=== PATIENT | male | born 1985 | race Caucasian/White ===

== ENCOUNTER 2020-02-14 23:30 | Emergency (ER) | payer BC ==
--- NOTE | 2020-02-14 23:54 | ERPHSYRPT ---
- History of Present Illness Time Seen by Provider: 02/14/20 23:35 Source: patient Exam Limitations: no limitations Physician History: Location: right foot Quality: sharp Radiation: none Severity: moderate Duration: acute on chronic Timing: while walking today Modifying factors/associated signs and symptoms: home tylenol, no ice Timing/Duration: intermittent Allergies/Adverse Reactions: No Known Drug Allergies Allergy (Verified 02/14/20 23:42) Home Medications: Metformin HCl [Glucophage] 1 tab PO BID 02/14/20 [History] Metoprolol Succinate 50 mg [Toprol Xl 50 MG] 1 tab PO DAILY 02/14/20 [History] Simvastatin 20Mg [Zocor 20Mg] 1 tab PO DAILY 02/14/20 [History] Sitagliptin Phosphate 50 MG [Januvia 50 MG] 2 tab PO DAILY 02/14/20 [History] Triamterene/Hydrochlorothiazid [Triamterene-Hctz 37.5-25 mg Tb] 1 tab PO DAILY 02/14/20 [History] Hx Tetanus, Diphtheria Vaccination/Date Given: Yes Hx Influenza Vaccination/Date Given: No Hx Pneumococcal Vaccination/Date Given: No - Past Medical History Pertinent Past Medical History: Yes Neurological History: No Pertinent History ENT History: No Pertinent History Cardiac History: Hypertension Respiratory History: Asthma Endocrine Medical History: Diabetes Type II Musculoskeletal History: No Pertinent History GI Medical History: No Pertinent History History: No Pertinent History Psycho-Social History: No Pertinent History Other Medical History: JENUVIA, METFORMIN, LISINOPRIL, METOPROLOL, - Past Surgical History Past Surgical History: Yes Neuro Surgical History: No Pertinent History Cardiac: No Pertinent History Respiratory: No Pertinent History Gastrointestinal: Appendectomy Genitourinary: No Pertinent History Musculoskeletal: No Pertinent History Male Surgical History: No Pertinent History Other Surgical History: ARM SURG,KNEE SURG - Social History Smoking Status: Never smoker Exposure to second hand smoke: No Drug Use: none Patient Lives Alone: Yes - Review of Systems Constitutional: No Fever, No Chills Eyes: No Symptoms Ears, Nose, & Throat: No Symptoms Respiratory: No Cough, No Dyspnea Cardiac: No Chest Pain, No Edema, No Syncope Abdominal/Gastrointestinal: No Abdominal Pain, No Nausea, No Vomiting, No Diarrhea Genitourinary Symptoms: No Dysuria Musculoskeletal: Other (left foot pain), No Back Pain, No Neck Pain Skin: No Rash Neurological: No Dizziness, No Focal Weakness, No Sensory Changes Psychological: No Symptoms Endocrine: No Symptoms All Other Systems: Reviewed and Negative - Nursing Vital Signs Nursing Vital Signs: Initial Vital Signs Temperature 98.5 F 02/14/20 23:31 Pulse Rate 71 02/14/20 23:31 Respiratory Rate 16 02/14/20 23:31 Blood Pressure 125/71 02/14/20 23:31 O2 Sat by Pulse Oximetry 98 02/14/20 23:31 Pain Scale Pain Intensity 7 - Physical Exam General Appearance: no apparent distress, alert Eye Exam: PERRL/EOMI Ears, Nose, Throat Exam: pharynx normal, moist mucous membranes Neck Exam: normal inspection, supple Respiratory Exam: normal breath sounds, lungs clear Cardiovascular Exam: regular rate/rhythm, No edema Gastrointestinal/Abdomen Exam: soft, No tenderness Back Exam: normal inspection, No CVA tenderness Extremity Exam: normal inspection, normal range of motion, No pedal edema Neurologic Exam: alert, oriented x 3, cooperative, sensation nml, No motor deficits Skin Exam: normal color, warm, dry, No rash SpO2 Interpretation: normal Comments: No trismus, able to fully extend neck, normal range of motion of neck without pain. Uvula is midline, no swelling of the mouth, noraml oropharynx. No exudate, no signs of meningitis, no floor of mouth swelling, no hot potato voice on exam. No buccal swelling, no gum bleeding, no signs of tooth abscess/infection. No obvious deformity, sensation intact, 2+ capillary refill, 2 point tactile discrimination intact. 5 out of 5 strength. Full range of motion without pain. Compartments are soft, nontender. Overlying skin shows no tenting, bruising, ecchymosis. - Course Nursing assessment & vital signs reviewed: Yes - Progress Progress: improved Progress Note: 02/15/20 00:04 No trauma or deformity on exam. I do not feel an x-ray would be helpful tonight. We will give the patient cream to go home with. States he had previously used that. Plan of care was discussed with patient and all questions answered. The patient is agreeable to be discharged home and both verbal and printed discharge instructions were provided.The patient agreed to seek outpatient follow up as discussed. The patient was given strict instructions to return to the emergency department for worsening symptoms or any other emergent concerns. The patient verbalized understanding. Counseled pt/family regarding: diagnosis, need for follow-up - Departure Departure Disposition: Extended Care Facility Clinical Impression: Right foot pain Condition: Stable Critical Care Time: No Referrals: ALIA HERNANDEZ [Primary Care Provider] - Instructions: Foot Sprain (DC) Prescriptions: Capsaicin 45 gm TP BID PRN #10 cream..g.
[2020-02-14 23:56] VITALS: BP 125/71; O2SAT 98
[2020-02-15 00:26] VITALS: PULSE 88
== END 2020-02-15 00:10 | disposition home or self-care (01) ==
LOC: ED 23:30
DX: M79.671 Pain in right foot (principal)
CPT/HCPCS: 99283

== ENCOUNTER 2020-07-31 09:02 | Observation (INO) | payer BC ==
[2020-07-31] MEDS ORDERED: Sodium Chloride 0.9% 1000 ML 1,000 ML IV STA (09:20)
--- NOTE | 2020-07-31 09:23 | ERPHSYRPT ---
- History of Present Illness Time Seen by Provider: 07/31/20 09:20 Source: patient Exam Limitations: no limitations Patient Subjective Stated Complaint: Pt states "Dr. Hernandez office called me and said my potassium was 6.3 and I needed to get to the ER." Triage Nursing Assessment: Pt presented alert and oriented X 3, skin pwd Pt ambulates with an upright steady gait, able to speak in clear full sentences . PT in no apparent respiratory distress. Physician History: 35 years old male with history of diabetes mellitus, hypertension, hyperlipidemia is advised to report in the ER after his serum potassium was 6.3 on labs checked yesterday at Dr. Hernandez office. Patient denies any chest pain palpitations or shortness of breath. Denies any abdominal pain nausea or vomiting. No history of hyperkalemia in the past. He is very anxious. Allergies/Adverse Reactions: No Known Drug Allergies Allergy (Verified 02/14/20 23:42) Home Medications: Metformin HCl [Glucophage] 1 tab PO BID 02/14/20 [History] Metoprolol Succinate 50 mg [Toprol Xl 50 MG] 1 tab PO DAILY 02/14/20 [History] Simvastatin 20Mg [Zocor 20Mg] 1 tab PO DAILY 02/14/20 [History] Sitagliptin Phosphate 50 MG [Januvia 50 MG] 2 tab PO DAILY 02/14/20 [History] Triamterene/Hydrochlorothiazid [Triamterene-Hctz 37.5-25 mg Tb] 1 tab PO DAILY 02/14/20 [History] Glimepiride 2 mg [Amaryl 2 MG] 2 mg PO DAILY 07/31/20 [History] Hx Tetanus, Diphtheria Vaccination/Date Given: Yes Hx Influenza Vaccination/Date Given: No Hx Pneumococcal Vaccination/Date Given: No Immunizations Up to Date: Yes Travel Risk - International Travel Have you traveled outside of the country in past 3 weeks: No - Coronavirus Screening Are you exhibiting any of the following symptoms?: No Close contact with a COVID-19 positive Pt in past 14-21 Days: No - Vaccine Status Have you recieved a Covid-19 vaccination: No - Review of Systems Constitutional: No Symptoms Eyes: No Symptoms Ears, Nose, & Throat: No Symptoms Respiratory: No Symptoms Cardiac: No Symptoms Abdominal/Gastrointestinal: No Symptoms Genitourinary Symptoms: No Symptoms Musculoskeletal: No Symptoms Skin: No Symptoms Neurological: No Symptoms Psychological: No Symptoms Endocrine: No Symptoms Hematologic/Lymphatic: No Symptoms Immunological/Allergic: No Symptoms - Past Medical History Pertinent Past Medical History: Yes Neurological History: No Pertinent History ENT History: No Pertinent History Cardiac History: Hypertension Respiratory History: Asthma Endocrine Medical History: Diabetes Type II Musculoskeletal History: No Pertinent History GI Medical History: No Pertinent History History: No Pertinent History Psycho-Social History: No Pertinent History Other Medical History: JENUVIA, METFORMIN, LISINOPRIL, METOPROLOL, - Past Surgical History Past Surgical History: Yes Neuro Surgical History: No Pertinent History Cardiac: No Pertinent History Respiratory: No Pertinent History Gastrointestinal: Appendectomy Genitourinary: No Pertinent History Musculoskeletal: No Pertinent History Male Surgical History: No Pertinent History Other Surgical History: ARM SURG,KNEE SURG - Social History Smoking Status: Never smoker Exposure to second hand smoke: No Drug Use: none Patient Lives Alone: No - Nursing Vital Signs Nursing Vital Signs: Initial Vital Signs Temperature 99.3 F 07/31/20 09:05 Pulse Rate 79 07/31/20 09:05 Respiratory Rate 20 07/31/20 09:05 Blood Pressure 120/67 07/31/20 09:05 O2 Sat by Pulse Oximetry 96 07/31/20 09:05 Pain Scale Pain Intensity 0 - Physical Exam General Appearance: no apparent distress, anxiety Eye Exam: PERRL/EOMI, eyes nml inspection Ears, Nose, Throat Exam: normal ENT inspection, TMs normal, pharynx normal Neck Exam: normal inspection, non-tender, supple, full range of motion Respiratory Exam: normal breath sounds, lungs clear, No chest tenderness Cardiovascular Exam: regular rate/rhythm, normal heart sounds Gastrointestinal/Abdomen Exam: soft, normal bowel sounds, No tenderness Back Exam: normal inspection, normal range of motion Extremity Exam: normal inspection, normal range of motion Neurologic Exam: alert, oriented x 3, cooperative Skin Exam: normal color SpO2 Interpretation: normal SpO2: 96 O2 Delivery: Room Air - Course EKG Interpreted by Me: RATE (73), Sinus Rhythm, NORMAL AXIS, NORMAL INTERVALS, NORMAL QRS Ordered Tests: Active Orders 24 hr Category Date Time Status Contact Center Team Lead STAT Care 07/31/20 09:21 Active EKG-ER Only STAT Care 07/31/20 09:20 Active IV Insertion STAT Care 07/31/20 09:20 Active IV Insertion-2nd Peripheral STAT Care 07/31/20 09:20 Active CHEST 1 VIEW (PORTABLE) Stat Exams 07/31/20 09:21 Completed CBC W DIFF Stat Lab 07/31/20 09:29 Completed CMP Stat Lab 07/31/20 09:29 Completed Lactic Acid Urgent Lab 07/31/20 09:30 Completed MAGNESIUM Stat Lab 07/31/20 09:29 Completed TROPONIN Q3H Lab 07/31/20 09:29 Completed TROPONIN Q3H Lab 07/31/20 12:30 Ordered TROPONIN Q3H Lab 07/31/20 15:30 Ordered TROPONIN Q3H Lab 07/31/20 18:30 Ordered TROPONIN Q3H Lab 07/31/20 21:30 Ordered UA W/RFX UR CULTURE Stat Lab 07/31/20 09:50 Ordered Medication Summary Generic Name Dose Route Start Last Admin Trade Name Freq PRN Reason Stop Dose Admin Sodium Chloride 1,000 mls @ 999 mls/hr 07/31/20 09:20 07/31/20 09:27 Sodium Chloride 0.9% 1000 Ml IV 07/31/20 10:20 999 mls/hr .Q1H1M STA Administration Discontinued Medications Generic Name Dose Route Start Last Admin Trade Name Freq PRN Reason Stop Dose Admin Calcium Gluconate 1,000 mg 07/31/20 09:55 Calcium Gluconate 10% 1000 Mg IV 07/31/20 09:56 STAT ONE Calcium Gluconate Confirm 07/31/20 10:02 Calcium Gluconate 10% 1000 Mg Administered 07/31/20 10:03 Dose 1,000 mg IV .STK-MED ONE Dextrose 50 ml 07/31/20 09:55 D50w 50 Ml Abboject IV 07/31/20 09:56 STAT ONE Dextrose Confirm 07/31/20 10:04 D50w 50 Ml Abboject Administered 07/31/20 10:05 Dose 50 ml IV .STK-MED ONE Sodium Chloride Confirm 07/31/20 09:26 Sodium Chloride 0.9% 1000 Ml Administered 07/31/20 09:27 Dose 1,000 mls @ ud .ROUTE .STK-MED ONE Insulin Human Regular 10 unit 07/31/20 09:55 Humulin R IV 07/31/20 09:56 STAT ONE Insulin Human Regular Confirm 07/31/20 10:04 Humulin R Administered 07/31/20 10:05 Dose 10 unit .ROUTE .STK-MED ONE Sodium Bicarbonate 50 meq 07/31/20 09:55 Sodium Bicarbonate 50 Meq/50 Ml Abboject IV 07/31/20 09:56 STAT ONE Sodium Bicarbonate Confirm 07/31/20 10:04 Sodium Bicarbonate 50 Meq/50 Ml Abboject Administered 07/31/20 10:05 Dose 50 meq IV .STK-MED ONE Sodium Polystyrene Sulfonate 30 g 07/31/20 09:55 07/31/20 10:03 Kayexylate 15 Gm/60 Ml PO 07/31/20 09:56 30 g STAT ONE Administration Sodium Polystyrene Sulfonate Confirm 07/31/20 10:01 Kayexylate 15 Gm/60 Ml Administered 07/31/20 10:02 Dose 30 g .ROUTE .STK-MED ONE Lab/Rad Data: Laboratory Result Diagrams 07/31/20 09:29 07/31/20 09:29 Laboratory Results 07/31/20 07/31/20 07/31/20 Range/Units 09:30 09:29 09:29 WBC (4.0-10.5) K/mm3 RBC (4.1-5.6) M/mm3 Hgb (12.5-18.0) gm/dl Hct (42-50) % MCV (78-100) fl MCH (26-32) pg MCHC (32-36) g/dl RDW (11.5-14.0) % Plt Count (150-450) K/mm3 MPV (7.5-11.0) fl Gran % (36.0-66.0) % Eos # (Auto) (0-0.5) Absolute Lymphs (auto) (1.0-4.6) Absolute Monos (auto) (0.0-1.3) Lymphocytes % (24.0-44.0) % Monocytes % (0.0-12.0) % Eosinophils % (0.00-5.0) % Basophils % (0.0-0.4) % Absolute Granulocytes (1.4-6.9) Basophils # (0-0.4) Sodium 139 (137-145) mmol/L Potassium 6.5 H* (3.5-5.1) mmol/L Chloride 104 (98-107) mmol/L Carbon Dioxide 25 (22-30) mmol/L Anion Gap 16.0 H (5-15) MEQ/L BUN 20 (9-20) mg/dL Creatinine 1.65 H (0.66-1.25) mg/dL Estimated GFR 50.7 ML/MIN Glucose 150 H (74-106) mg/dL Lactic Acid 1.2 (0.4-2.0) Calcium 9.6 (8.4-10.2) mg/dL Magnesium 2.0 (1.6-2.3) mg/dL Total Bilirubin 0.50 (0.2-1.3) mg/dL AST 28 (17-59) U/L ALT 37 (0-50) U/L Alkaline Phosphatase 84 (38-126) U/L Troponin I < 0.012 (0.000-0.034) ng/mL Serum Total Protein 7.4 (6.3-8.2) g/dL Albumin 4.5 (3.5-5.0) g/dL 07/31/20 Range/Units 09:29 WBC 8.7 (4.0-10.5) K/mm3 RBC 5.68 H (4.1-5.6) M/mm3 Hgb 14.9 (12.5-18.0) gm/dl Hct 49.0 (42-50) % MCV 86.3 (78-100) fl MCH 26.2 (26-32) pg MCHC 30.4 L (32-36) g/dl RDW 16.7 H (11.5-14.0) % Plt Count 278 (150-450) K/mm3 MPV 10.4 (7.5-11.0) fl Gran % 62.9 (36.0-66.0) % Eos # (Auto) 0.39 (0-0.5) Absolute Lymphs (auto) 2.02 (1.0-4.6) Absolute Monos (auto) 0.72 (0.0-1.3) Lymphocytes % 23.3 L (24.0-44.0) % Monocytes % 8.3 (0.0-12.0) % Eosinophils % 4.5 (0.00-5.0) % Basophils % 1.0 (0.0-0.4) % Absolute Granulocytes 5.45 (1.4-6.9) Basophils # 0.09 (0-0.4) Sodium (137-145) mmol/L Potassium (3.5-5.1) mmol/L Chloride (98-107) mmol/L Carbon Dioxide (22-30) mmol/L Anion Gap (5-15) MEQ/L BUN (9-20) mg/dL Creatinine (0.66-1.25) mg/dL Estimated GFR ML/MIN Glucose (74-106) mg/dL Lactic Acid (0.4-2.0) Calcium (8.4-10.2) mg/dL Magnesium (1.6-2.3) mg/dL Total Bilirubin (0.2-1.3) mg/dL AST (17-59) U/L ALT (0-50) U/L Alkaline Phosphatase (38-126) U/L Troponin I (0.000-0.034) ng/mL Serum Total Protein (6.3-8.2) g/dL Albumin (3.5-5.0) g/dL - Progress Progress Note: 07/31/20 10:01 35 years old is evaluated for hyperkalemia found at the lab work done yesterday afternoon at Dr. Hernandez's office. EKG showed normal sinus rhythm with some mild peaked T waves in lateral leads. No ST elevation. Repeat labs showed potassium of 6.5. We would give him calcium gluconate, bicarb, dextrose, insulin and Kayexalate along with fluid bolus. Patient would be admitted. Discussed with : Blaise Will see patient in: hospital (observation) Counseled pt/family regarding: lab results, diagnosis, rad results - Departure Departure Disposition: Observation Clinical Impression: Hyperkalemia, SAADIA (acute kidney injury) Condition: Stable Critical Care Time: Yes Critical Care Time(excluding separately billable procedures): Critical 30-74 mins Referrals: ALIA HERNANDEZ [Primary Care Provider] -
[2020-07-31] MEDS ORDERED: Sodium Chloride 0.9% 1000 ML 1,000 ML ONE (09:26)
[2020-07-31 09:37] LABS: Absolute Neutrophil Ct (ANC) 5.45 (1.4-6.9); Basophil (Absolute #) 0.09 (0-0.4); Eosinophil % 4.5 % (0.00-5.0); Eosinophil (Absolute #) 0.39 (0-0.5); Hemoglobin 14.9 gm/dl (12.5-18.0); Lymphocyte (Absolute #) 2.02 (1.0-4.6); Lymphocytes % 23.3 % (24.0-44.0); Mean Cell Volume 86.3 fl (78-100); Mean Corpuscular Hemoglobin 26.2 pg (26-32); Mean Corpuscular Hgb Concent. 30.4 g/dl (32-36); Mean Platelet Volume 10.4 fl (7.5-11.0); Monocyte (Absolute #) 0.72 (0.0-1.3); Monocytes % 8.3 % (0.0-12.0); Neutrophil % 62.9 % (36.0-66.0); Platelet Count 278 K/mm3 (150-450); Red Blood Count 5.68 M/mm3 (4.1-5.6); Red Cell Distribution Width 16.7 % (11.5-14.0); White Blood Count 8.7 K/mm3 (4.0-10.5)
[2020-07-31 09:49] LABS: ALBUMIN 4.5 g/dL (3.5-5.0); BILIRUBIN,TOTAL 0.5 mg/dL (0.2-1.3); Calcium 9.6 mg/dL (8.4-10.2); Creatinine 1 1.65 mg/dL (0.66-1.25); EST GLOMERULAR FILTRATION RATE 50.7 ML/MIN; Total Protein 7.4 g/dL (6.3-8.2)
[2020-07-31 09:52] LABS: Potassium 6.5 mmol/L (3.5-5.1)
--- NOTE | 2020-07-31 09:53 | XRAY ---
Indication: High potassium. Comparison: November 27, 2017. Portable chest remains clear again with incidental mild right hemidiaphragm elevation. Heart and mediastinal structures within normal limits. Bony thorax intact. Impression: Continued nonacute chest.
[2020-07-31] MEDS ORDERED: HUMULIN R IV ONE (09:55)
[2020-07-31] MEDS ORDERED: SODIUM BICARBONATE 50 MEQ/50 ML ABBOJECT IV ONE ×2 (09:55→10:04)
[2020-07-31] MEDS ORDERED: Calcium Gluconate 10% 1000 MG IV ONE ×2 (09:55→10:02)
[2020-07-31] MEDS ORDERED: Kayexylate 15 GM/60 ML PO ONE ×2 (09:55→17:50)
[2020-07-31] MEDS ORDERED: D50W 50 ml Abboject IV ONE ×2 (09:55→10:04)
[2020-07-31] MEDS ORDERED: Kayexylate 15 GM/60 ML ONE (10:01)
[2020-07-31] MEDS ORDERED: HUMULIN R ONE (10:04)
[2020-07-31] MEDS ORDERED: Lasix 20 MG/2 ML IV STA (10:06)
[2020-07-31 10:53] LABS: Appearance CLEAR (CLEAR); Bilirubin NEGATIVE (NEGATIVE); Blood NEGATIVE Ery/ul (0-5); Glucose NEGATIVE (NEGATIVE); Ketones NEGATIVE (NEGATIVE); Leukocyte Esterase NEGATIVE (NEGATIVE); Mucus SLIGHT /HPF (NEGATIVE); Nitrite NEGATIVE (NEGATIVE); Protein,Urine Dip NEGATIVE (Negative); Specific Gravity 1.017 (1.005-1.025); Urobilinogen NEGATIVE mg/dL (0-1)
[2020-07-31 11:22] LABS: INFLUENZA A NEGATIVE (NEGATIVE); INFLUENZA B NEGATIVE (NEGATIVE); RESPIRATORY SYNCTIAL VIRUS NEGATIVE (Negative)
[2020-07-31] MEDS ORDERED: Lasix 40 MG/4 ML ONE (11:40)
[2020-07-31] MEDS ORDERED: HUMALOG SQ PRN (12:11)
[2020-07-31] MEDS ORDERED: DUONEB 0.5-3 MG/3 ml Neb IH PRN (12:11)
[2020-07-31] MEDS ORDERED: TYLENOL 325 MG PO PRN (12:11)
[2020-07-31] MEDS: Pepcid 20 MG VIAL IV SCH ×2 (13:53→22:28)
[2020-07-31] MEDS: Sodium Chloride 0.9% 1000 ML 1,000 ML IV SCH ×2 (13:53→22:28)
[2020-07-31] MEDS ORDERED: VENTOLIN COMMON CANISTER IH PRN (13:54)
[2020-07-31] MEDS: Glucophage 500 MG PO SCH (17:41)
[2020-07-31] MEDS ORDERED: NON-FORMULARY ITEM (Metformin Hcl [Glucophage] 1,000 MG) PO SCH (22:00)
[2020-07-31] MEDS ORDERED: ZOCOR 20MG ONE (22:24)
[2020-08-01 06:08] LABS: Absolute Neutrophil Ct (ANC) 6.52 (1.4-6.9); BASOPHIL % 0.8 % (0.0-0.4); Basophil (Absolute #) 0.07 (0-0.4); Eosinophil (Absolute #) 0.44 (0-0.5); Hematocrit 44.2 % (42-50); Hemoglobin 13.2 gm/dl (12.5-18.0); Lymphocytes % 11.4 % (24.0-44.0); Mean Cell Volume 87.2 fl (78-100); Mean Corpuscular Hgb Concent. 29.9 g/dl (32-36); Mean Platelet Volume 10.1 fl (7.5-11.0); Monocyte (Absolute #) 0.73 (0.0-1.3); Monocytes % 8.3 % (0.0-12.0); Neutrophil % 74.5 % (36.0-66.0); Platelet Count 213 K/mm3 (150-450); Red Blood Count 5.07 M/mm3 (4.1-5.6); Red Cell Distribution Width 16.9 % (11.5-14.0); White Blood Count 8.8 K/mm3 (4.0-10.5)
[2020-08-01] MEDS: Sodium Chloride 0.9% 1000 ML 1,000 ML IV SCH (06:14)
[2020-08-01 06:23] LABS: ALBUMIN 3.7 g/dL (3.5-5.0); ALKALINE PHOSPHATASE 72 U/L (38-126); ANION GAP 11.8 MEQ/L (5-15); BLOOD UREA NITROGEN 18 mg/dL (9-20); CHLORIDE 105 mmol/L (98-107); Calcium 8.6 mg/dL (8.4-10.2); Carbon Dioxide 24 mmol/L (22-30); Creatinine 1 1.39 mg/dL (0.66-1.25); EST GLOMERULAR FILTRATION RATE > 60.0 ML/MIN; Glucose 144 mg/dL (74-106); Potassium 4.7 mmol/L (3.5-5.1); SGOT/AST 28 U/L (17-59); SGPT/ALT 37 U/L (0-50); SODIUM 136 mmol/L (137-145); Total Protein 6.5 g/dL (6.3-8.2)
[2020-08-01] MEDS: Glucophage 500 MG PO SCH (08:27)
[2020-08-01] MEDS: Pepcid 20 MG VIAL IV SCH (09:59)
[2020-08-01] MEDS ORDERED: Januvia 50 MG PO SCH (10:00)
[2020-08-01] MEDS ORDERED: CLARITIN 10 MG PO SCH (10:00)
[2020-08-01] MEDS ORDERED: Glucotrol 5 MG PO SCH (10:00)
[2020-08-01] MEDS ORDERED: NON-FORMULARY ITEM (Cetirizine Hcl [Allergy Relief] 10 MG) PO SCH (10:00)
[2020-08-01] MEDS ORDERED: Toprol Xl 50 MG PO SCH (10:00)
--- NOTE | 2020-08-01 11:10 | PCM.SSS ---
History of Present Illness - Chief Complaint Chief Complaint: Hyperkalemia History of Present Illness: Mr.ROBERTSON BAIG is a 35 year old male who was admitted after routine bloodwork revealed a K of 6.5, he has had no symptoms. he denies any change in diet or fluid intake, no new meds, no recent vigorous exercise, he works in the [employer] and has no extreme heat exposure etc. - Review of Systems Constitutional: No Fever, No Chills Respiratory: No Cough, No Short Of Breath Cardiac: No Chest Pain, No Edema, No Syncope Abdominal/Gastrointestinal: No Abdominal Pain, No Nausea, No Vomiting, No Diarrhea Genitourinary Symptoms: No Dysuria Skin: No Rash All Other Systems: Reviewed and Negative Medications & Allergies Home Medications: Home Medication List Metformin HCl [Glucophage] 1,000 mg PO BID 02/14/20 [History Confirmed 07/31/20] Metoprolol Succinate 50 mg [Toprol Xl 50 MG] 1 tab PO DAILY 02/14/20 [History Confirmed 07/31/20] Simvastatin 20Mg [Zocor 20Mg] 1 tab PO DAILY 02/14/20 [History Confirmed 07/31/20] Albuterol Sulfate [Albuterol Sulfate Hfa] 8.5 gm IH Q4H PRN PRN 07/31/20 [History Confirmed 07/31/20] Cetirizine HCl [Allergy Relief] 10 mg PO DAILY 07/31/20 [History Confirmed 07/31/20] Glipizide 2 mg PO DAILY 07/31/20 [History Confirmed 07/31/20] Lisinopril 20 mg [Zestril 20 MG] 40 mg PO DAILY 07/31/20 [History Confirmed 07/31/20] Sitagliptin Phosphate 50 MG [Januvia 50 MG] 100 mg PO DAILY 07/31/20 [History Confirmed 07/31/20] Hydrochlorothiazide 25 mg [hydroDIURIL 25 MG] 25 mg PO DAILY #30 tablet 08/01/20 [Rx] Allergies/Adverse Reactions: Allergies Allergy/AdvReac Type Severity Reaction Status Date / Time No Known Drug Allergies Allergy Verified 02/14/20 23:42 - Past Medical History Past Medical History: Yes Neurological History: No Pertinent History ENT History: No Pertinent History Cardiac History: Hypertension Respiratory History: Asthma Endocrine Medical History: Diabetes Type II Musculoskelatal History: No Pertinent History GI Medical History: No Pertinent History History: No Pertinent History Pyscho-Social History: No Pertinent History Comment: JENUVIA, METFORMIN, LISINOPRIL, METOPROLOL, - Past Surgical History Past Surgical History: Yes Neuro Surgical History: No Pertinent History Cardiac History: No Pertinent History Respiratory Surgery: No Pertinent History GI Surgical History: Appendectomy Genitourinary Surgical Hx: No Pertinent History Musculskeletal Surgical Hx: No Pertinent History Male Surgical History: No Pertinent History Other Surgical History: ARM SURG,KNEE SURG - Social History Smoking Status: Never smoker Exposure to second hand smoke: No Alcohol: Occasionally Drug Use: none - Physical Exam Vital Signs: Vital Signs - 24 hr Temp Pulse Resp BP Pulse Ox 08/01/20 08:00 96.6 F 73 18 129/61 93 L 08/01/20 04:19 99.2 F 99 H 20 119/57 93 L 08/01/20 04:00 20 08/01/20 00:04 97.7 F 82 20 128/77 96 08/01/20 00:00 20 07/31/20 20:36 78 17 92 L 07/31/20 20:00 18 07/31/20 18:52 97.3 F 71 18 107/59 95 07/31/20 16:00 98.3 F 82 22 121/68 96 07/31/20 14:00 73 18 95 07/31/20 12:29 99.3 F 72 16 98/67 98 General Appearance: no apparent distress, obese Neurologic Exam: alert, oriented x 3, cooperative Respiratory Exam: normal breath sounds, lungs clear, No respiratory distress Cardiovascular Exam: regular rate/rhythm, normal heart sounds, normal peripheral pulses Gastrointestinal/Abdomen Exam: soft, normal bowel sounds, No tenderness, No mass Extremity Exam: normal inspection, normal range of motion, pelvis stable Results - Labs Lab/Micro Results: Lab Results-Last 24 Hours 07/31/20 07/31/20 07/31/20 Range/Units 10:27 12:25 14:20 WBC (4.0-10.5) K/mm3 RBC (4.1-5.6) M/mm3 Hgb (12.5-18.0) gm/dl Hct (42-50) % MCV (78-100) fl MCH (26-32) pg MCHC (32-36) g/dl RDW (11.5-14.0) % Plt Count (150-450) K/mm3 MPV (7.5-11.0) fl Gran % (36.0-66.0) % Eos # (Auto) (0-0.5) Absolute Lymphs (auto) (1.0-4.6) Absolute Monos (auto) (0.0-1.3) Lymphocytes % (24.0-44.0) % Monocytes % (0.0-12.0) % Eosinophils % (0.00-5.0) % Basophils % (0.0-0.4) % Absolute Granulocytes (1.4-6.9) Basophils # (0-0.4) Sodium (137-145) mmol/L Potassium 5.2 H (3.5-5.1) mmol/L Chloride (98-107) mmol/L Carbon Dioxide (22-30) mmol/L Anion Gap (5-15) MEQ/L BUN (9-20) mg/dL Creatinine (0.66-1.25) mg/dL Estimated GFR ML/MIN Glucose (74-106) mg/dL POC Glucometer (74 to 106) mg/dL Calcium (8.4-10.2) mg/dL Total Bilirubin (0.2-1.3) mg/dL AST (17-59) U/L ALT (0-50) U/L Alkaline Phosphatase (38-126) U/L Troponin I < 0.012 (0.000-0.034) ng/mL Serum Total Protein (6.3-8.2) g/dL Albumin (3.5-5.0) g/dL Influenza Type A Ag NEGATIVE (NEGATIVE) Influenza Type B Ag NEGATIVE (NEGATIVE) RSV (PCR) NEGATIVE (Negative) SARS-CoV-2 (PCR) NEGATIVE (NEGATIVE) 07/31/20 07/31/20 07/31/20 Range/Units 15:32 16:14 18:30 WBC (4.0-10.5) K/mm3 RBC (4.1-5.6) M/mm3 Hgb (12.5-18.0) gm/dl Hct (42-50) % MCV (78-100) fl MCH (26-32) pg MCHC (32-36) g/dl RDW (11.5-14.0) % Plt Count (150-450) K/mm3 MPV (7.5-11.0) fl Gran % (36.0-66.0) % Eos # (Auto) (0-0.5) Absolute Lymphs (auto) (1.0-4.6) Absolute Monos (auto) (0.0-1.3) Lymphocytes % (24.0-44.0) % Monocytes % (0.0-12.0) % Eosinophils % (0.00-5.0) % Basophils % (0.0-0.4) % Absolute Granulocytes (1.4-6.9) Basophils # (0-0.4) Sodium (137-145) mmol/L Potassium (3.5-5.1) mmol/L Chloride (98-107) mmol/L Carbon Dioxide (22-30) mmol/L Anion Gap (5-15) MEQ/L BUN (9-20) mg/dL Creatinine (0.66-1.25) mg/dL Estimated GFR ML/MIN Glucose (74-106) mg/dL POC Glucometer 142 H (74 to 106) mg/dL Calcium (8.4-10.2) mg/dL Total Bilirubin (0.2-1.3) mg/dL AST (17-59) U/L ALT (0-50) U/L Alkaline Phosphatase (38-126) U/L Troponin I < 0.012 < 0.012 (0.000-0.034) ng/mL Serum Total Protein (6.3-8.2) g/dL Albumin (3.5-5.0) g/dL Influenza Type A Ag (NEGATIVE) Influenza Type B Ag (NEGATIVE) RSV (PCR) (Negative) SARS-CoV-2 (PCR) (NEGATIVE) 07/31/20 07/31/20 08/01/20 Range/Units 21:25 21:31 05:45 WBC 8.8 (4.0-10.5) K/mm3 RBC 5.07 (4.1-5.6) M/mm3 Hgb 13.2 (12.5-18.0) gm/dl Hct 44.2 (42-50) % MCV 87.2 (78-100) fl MCH 26.0 (26-32) pg MCHC 29.9 L (32-36) g/dl RDW 16.9 H (11.5-14.0) % Plt Count 213 (150-450) K/mm3 MPV 10.1 (7.5-11.0) fl Gran % 74.5 H (36.0-66.0) % Eos # (Auto) 0.44 (0-0.5) Absolute Lymphs (auto) 1.00 (1.0-4.6) Absolute Monos (auto) 0.73 (0.0-1.3) Lymphocytes % 11.4 L (24.0-44.0) % Monocytes % 8.3 (0.0-12.0) % Eosinophils % 5.0 (0.00-5.0) % Basophils % 0.8 (0.0-0.4) % Absolute Granulocytes 6.52 (1.4-6.9) Basophils # 0.07 (0-0.4) Sodium (137-145) mmol/L Potassium (3.5-5.1) mmol/L Chloride (98-107) mmol/L Carbon Dioxide (22-30) mmol/L Anion Gap (5-15) MEQ/L BUN (9-20) mg/dL Creatinine (0.66-1.25) mg/dL Estimated GFR ML/MIN Glucose (74-106) mg/dL POC Glucometer 185 H (74 to 106) mg/dL Calcium (8.4-10.2) mg/dL Total Bilirubin (0.2-1.3) mg/dL AST (17-59) U/L ALT (0-50) U/L Alkaline Phosphatase (38-126) U/L Troponin I < 0.012 (0.000-0.034) ng/mL Serum Total Protein (6.3-8.2) g/dL Albumin (3.5-5.0) g/dL Influenza Type A Ag (NEGATIVE) Influenza Type B Ag (NEGATIVE) RSV (PCR) (Negative) SARS-CoV-2 (PCR) (NEGATIVE) 08/01/20 08/01/20 Range/Units 05:45 06:51 WBC (4.0-10.5) K/mm3 RBC (4.1-5.6) M/mm3 Hgb (12.5-18.0) gm/dl Hct (42-50) % MCV (78-100) fl MCH (26-32) pg MCHC (32-36) g/dl RDW (11.5-14.0) % Plt Count (150-450) K/mm3 MPV (7.5-11.0) fl Gran % (36.0-66.0) % Eos # (Auto) (0-0.5) Absolute Lymphs (auto) (1.0-4.6) Absolute Monos (auto) (0.0-1.3) Lymphocytes % (24.0-44.0) % Monocytes % (0.0-12.0) % Eosinophils % (0.00-5.0) % Basophils % (0.0-0.4) % Absolute Granulocytes (1.4-6.9) Basophils # (0-0.4) Sodium 136 L (137-145) mmol/L Potassium 4.7 (3.5-5.1) mmol/L Chloride 105 (98-107) mmol/L Carbon Dioxide 24 (22-30) mmol/L Anion Gap 11.8 (5-15) MEQ/L BUN 18 (9-20) mg/dL Creatinine 1.39 H (0.66-1.25) mg/dL Estimated GFR > 60.0 ML/MIN Glucose 144 H (74-106) mg/dL POC Glucometer 125 H (74 to 106) mg/dL Calcium 8.6 (8.4-10.2) mg/dL Total Bilirubin 0.80 (0.2-1.3) mg/dL AST 28 (17-59) U/L ALT 37 (0-50) U/L Alkaline Phosphatase 72 (38-126) U/L Troponin I (0.000-0.034) ng/mL Serum Total Protein 6.5 (6.3-8.2) g/dL Albumin 3.7 (3.5-5.0) g/dL Influenza Type A Ag (NEGATIVE) Influenza Type B Ag (NEGATIVE) RSV (PCR) (Negative) SARS-CoV-2 (PCR) (NEGATIVE) Accuchecks Date 08/01/20 - Radiology Impressions Radiology Exams & Impressions: Radiology Procedures Category Date Time Status CHEST 1 VIEW (PORTABLE) Stat Exams 07/31/20 09:21 Completed - Other Procedures and Tests Respiratory Therapy 07/31/20 14:00 Respiratory Therapy Assessment DAILY Assessment/Plan (1) Hyperkalemia Current Visit: Yes Status: Acute Assessment & Plan: resolved with treatment, Dr Hernandez his primary d/c triamterene, elevated bun/cr likely secondary to diuretic use, will continue to hold triamterene, continue hctz and check labs with followup next week Code(s): E87.5 - HYPERKALEMIA (2) SAADIA (acute kidney injury) Current Visit: Yes Status: Acute Code(s): N17.9 - ACUTE KIDNEY FAILURE, UNSPECIFIED Hospital Summary - Vitals & Intake/Output Vital Signs: Vital Signs Temperature 96.6 F 08/01/20 08:00 Pulse Rate 73 08/01/20 08:00 Respiratory Rate 18 08/01/20 08:00 Blood Pressure 129/61 08/01/20 08:00 O2 Sat by Pulse Oximetry 93 L 08/01/20 08:00 Intake & Output: Intake & Output 07/29/20 07/30/20 07/31/20 08/01/20 11:59 11:59 11:59 11:59 Intake Total 2876 Balance 2876 Weight 176.8 kg 176.9 kg - Lab Result Diagrams: 08/01/20 05:45 08/01/20 05:45 Lab Results-Last 24 Hrs: Lab Results-Last 24 Hours 07/31/20 07/31/20 07/31/20 Range/Units 10:27 12:25 14:20 WBC (4.0-10.5) K/mm3 RBC (4.1-5.6) M/mm3 Hgb (12.5-18.0) gm/dl Hct (42-50) % MCV (78-100) fl MCH (26-32) pg MCHC (32-36) g/dl RDW (11.5-14.0) % Plt Count (150-450) K/mm3 MPV (7.5-11.0) fl Gran % (36.0-66.0) % Eos # (Auto) (0-0.5) Absolute Lymphs (auto) (1.0-4.6) Absolute Monos (auto) (0.0-1.3) Lymphocytes % (24.0-44.0) % Monocytes % (0.0-12.0) % Eosinophils % (0.00-5.0) % Basophils % (0.0-0.4) % Absolute Granulocytes (1.4-6.9) Basophils # (0-0.4) Sodium (137-145) mmol/L Potassium 5.2 H (3.5-5.1) mmol/L Chloride (98-107) mmol/L Carbon Dioxide (22-30) mmol/L Anion Gap (5-15) MEQ/L BUN (9-20) mg/dL Creatinine (0.66-1.25) mg/dL Estimated GFR ML/MIN Glucose (74-106) mg/dL POC Glucometer (74 to 106) mg/dL Calcium (8.4-10.2) mg/dL Total Bilirubin (0.2-1.3) mg/dL AST (17-59) U/L ALT (0-50) U/L Alkaline Phosphatase (38-126) U/L Troponin I < 0.012 (0.000-0.034) ng/mL Serum Total Protein (6.3-8.2) g/dL Albumin (3.5-5.0) g/dL Influenza Type A Ag NEGATIVE (NEGATIVE) Influenza Type B Ag NEGATIVE (NEGATIVE) RSV (PCR) NEGATIVE (Negative) SARS-CoV-2 (PCR) NEGATIVE (NEGATIVE) 07/31/20 07/31/20 07/31/20 Range/Units 15:32 16:14 18:30 WBC (4.0-10.5) K/mm3 RBC (4.1-5.6) M/mm3 Hgb (12.5-18.0) gm/dl Hct (42-50) % MCV (78-100) fl MCH (26-32) pg MCHC (32-36) g/dl RDW (11.5-14.0) % Plt Count (150-450) K/mm3 MPV (7.5-11.0) fl Gran % (36.0-66.0) % Eos # (Auto) (0-0.5) Absolute Lymphs (auto) (1.0-4.6) Absolute Monos (auto) (0.0-1.3) Lymphocytes % (24.0-44.0) % Monocytes % (0.0-12.0) % Eosinophils % (0.00-5.0) % Basophils % (0.0-0.4) % Absolute Granulocytes (1.4-6.9) Basophils # (0-0.4) Sodium (137-145) mmol/L Potassium (3.5-5.1) mmol/L Chloride (98-107) mmol/L Carbon Dioxide (22-30) mmol/L Anion Gap (5-15) MEQ/L BUN (9-20) mg/dL Creatinine (0.66-1.25) mg/dL Estimated GFR ML/MIN Glucose (74-106) mg/dL POC Glucometer 142 H (74 to 106) mg/dL Calcium (8.4-10.2) mg/dL Total Bilirubin (0.2-1.3) mg/dL AST (17-59) U/L ALT (0-50) U/L Alkaline Phosphatase (38-126) U/L Troponin I < 0.012 < 0.012 (0.000-0.034) ng/mL Serum Total Protein (6.3-8.2) g/dL Albumin (3.5-5.0) g/dL Influenza Type A Ag (NEGATIVE) Influenza Type B Ag (NEGATIVE) RSV (PCR) (Negative) SARS-CoV-2 (PCR) (NEGATIVE) 07/31/20 07/31/20 08/01/20 Range/Units 21:25 21:31 05:45 WBC 8.8 (4.0-10.5) K/mm3 RBC 5.07 (4.1-5.6) M/mm3 Hgb 13.2 (12.5-18.0) gm/dl Hct 44.2 (42-50) % MCV 87.2 (78-100) fl MCH 26.0 (26-32) pg MCHC 29.9 L (32-36) g/dl RDW 16.9 H (11.5-14.0) % Plt Count 213 (150-450) K/mm3 MPV 10.1 (7.5-11.0) fl Gran % 74.5 H (36.0-66.0) % Eos # (Auto) 0.44 (0-0.5) Absolute Lymphs (auto) 1.00 (1.0-4.6) Absolute Monos (auto) 0.73 (0.0-1.3) Lymphocytes % 11.4 L (24.0-44.0) % Monocytes % 8.3 (0.0-12.0) % Eosinophils % 5.0 (0.00-5.0) % Basophils % 0.8 (0.0-0.4) % Absolute Granulocytes 6.52 (1.4-6.9) Basophils # 0.07 (0-0.4) Sodium (137-145) mmol/L Potassium (3.5-5.1) mmol/L Chloride (98-107) mmol/L Carbon Dioxide (22-30) mmol/L Anion Gap (5-15) MEQ/L BUN (9-20) mg/dL Creatinine (0.66-1.25) mg/dL Estimated GFR ML/MIN Glucose (74-106) mg/dL POC Glucometer 185 H (74 to 106) mg/dL Calcium (8.4-10.2) mg/dL Total Bilirubin (0.2-1.3) mg/dL AST (17-59) U/L ALT (0-50) U/L Alkaline Phosphatase (38-126) U/L Troponin I < 0.012 (0.000-0.034) ng/mL Serum Total Protein (6.3-8.2) g/dL Albumin (3.5-5.0) g/dL Influenza Type A Ag (NEGATIVE) Influenza Type B Ag (NEGATIVE) RSV (PCR) (Negative) SARS-CoV-2 (PCR) (NEGATIVE) 08/01/20 08/01/20 Range/Units 05:45 06:51 WBC (4.0-10.5) K/mm3 RBC (4.1-5.6) M/mm3 Hgb (12.5-18.0) gm/dl Hct (42-50) % MCV (78-100) fl MCH (26-32) pg MCHC (32-36) g/dl RDW (11.5-14.0) % Plt Count (150-450) K/mm3 MPV (7.5-11.0) fl Gran % (36.0-66.0) % Eos # (Auto) (0-0.5) Absolute Lymphs (auto) (1.0-4.6) Absolute Monos (auto) (0.0-1.3) Lymphocytes % (24.0-44.0) % Monocytes % (0.0-12.0) % Eosinophils % (0.00-5.0) % Basophils % (0.0-0.4) % Absolute Granulocytes (1.4-6.9) Basophils # (0-0.4) Sodium 136 L (137-145) mmol/L Potassium 4.7 (3.5-5.1) mmol/L Chloride 105 (98-107) mmol/L Carbon Dioxide 24 (22-30) mmol/L Anion Gap 11.8 (5-15) MEQ/L BUN 18 (9-20) mg/dL Creatinine 1.39 H (0.66-1.25) mg/dL Estimated GFR > 60.0 ML/MIN Glucose 144 H (74-106) mg/dL POC Glucometer 125 H (74 to 106) mg/dL Calcium 8.6 (8.4-10.2) mg/dL Total Bilirubin 0.80 (0.2-1.3) mg/dL AST 28 (17-59) U/L ALT 37 (0-50) U/L Alkaline Phosphatase 72 (38-126) U/L Troponin I (0.000-0.034) ng/mL Serum Total Protein 6.5 (6.3-8.2) g/dL Albumin 3.7 (3.5-5.0) g/dL Influenza Type A Ag (NEGATIVE) Influenza Type B Ag (NEGATIVE) RSV (PCR) (Negative) SARS-CoV-2 (PCR) (NEGATIVE) Micro Results-Entire Visit: Accuchecks Date 08/01/20 - Radiology Exams Ordered Rad Exams-Entire Visit: Radiology Procedures Category Date Time Status CHEST 1 VIEW (PORTABLE) Stat Exams 07/31/20 09:21 Completed - Procedures and Test Procedures and Tests throughout Hospitalization: Therapy Orders & Screens 07/31/20 12:41 RT Screen per Nursing Assess ONCE Comment: Protocol Order Physician Instructions: Greater than 3 points order RT Admission Screen Reason For Exam: Triggered on Admission Diagnosis: Hyperkalemia Diagnosis: Hyperkalemia Pneumonia: No Home O2: No Asthma: Yes CHF: No Home CPAP/BIPAP: No Home Nebs/MDI: Yes Total Points: 9 07/31/20 14:00 Respiratory Therapy Assessment DAILY Comment: Diagnosis: Hyperkalemia - Discharge Disposition: Home, Self-Care Condition: Stable Prescriptions: New Hydrochlorothiazide 25 mg [hydroDIURIL 25 MG] 25 mg PO DAILY #30 tablet Continue Simvastatin 20Mg [Zocor 20Mg] 1 tab PO DAILY Metoprolol Succinate 50 mg [Toprol Xl 50 MG] 1 tab PO DAILY Metformin HCl [Glucophage] 1,000 mg PO BID Sitagliptin Phosphate 50 MG [Januvia 50 MG] 100 mg PO DAILY Glipizide 2 mg PO DAILY Cetirizine HCl [Allergy Relief] 10 mg PO DAILY Lisinopril 20 mg [Zestril 20 MG] 40 mg PO DAILY Albuterol Sulfate [Albuterol Sulfate Hfa] 8.5 gm IH Q4H PRN PRN PRN Reason: Shortness Of Breath Discontinued Triamterene/Hydrochlorothiazid [Triamterene-Hctz 37.5-25 mg Tb] 1 tab PO DA PROSPER Outpatient Orders: BMP Time Frame: 1 Week, Facility: [facility], Location: LABORATORY Additional Instructions: see Dr Hernandez next week, have BMP drawn prior to appointment at least 3 hours Follow up with: ALIA HERNANDEZ [Primary Care Provider] - 1 Week
[2020-08-01 12:28] VITALS: BP 113/70; PULSE 75; O2SAT 98
[2020-08-01] MEDS ORDERED: ZOCOR 20MG PO SCH (22:00)
== END 2020-08-01 11:37 | disposition home or self-care (01) ==
LOC: ED 09:02 → MED SURG 12:00
PROVIDERS: ADMIT Family Medicine; ATTEND Family Medicine
DX: E87.5 Hyperkalemia (principal); N17.9 Acute kidney failure, unspecified; Z79.899 Other long term (current) drug therapy; Z20.828 Contact with and (suspected) exposure to other viral communicable diseases; E11.9 Type 2 diabetes mellitus without complications; I10 Essential (primary) hypertension; E78.5 Hyperlipidemia, unspecified
CPT/HCPCS: 0241U; 36000; 36415; 71045; 80053; 81001; 82947; 83605; 83735; 84132; 84484; 85025; 93005; 93041; 93268; 94640; 94760; 96360; 96374; 96375; 99285; 99291; G0378; J0610; J1815; J1817; J1940; A9270-GY

== ENCOUNTER 2021-06-14 05:00 | Observation (INO) | payer BC ==
[2021-06-14] MEDS ORDERED: DUONEB 0.5-3 MG/3 ml Neb IH ONE ×2 (05:29→05:42)
[2021-06-14] MEDS ORDERED: solu-MEDROL 125 MG, Sterile H2O 10 ml 2 ML IV ONE ×2 (05:29)
[2021-06-14] MEDS ORDERED: solu-MEDROL ONE ×2 (05:31→23:39)
[2021-06-14 05:52] LABS: Absolute Neutrophil Ct (ANC) 5.82 (1.4-6.9); Basophil (Absolute #) 0.07 (0-0.4); Eosinophil % 5.4 % (0.00-5.0); Hematocrit 46.6 % (42-50); Hemoglobin 14.2 gm/dl (12.5-18.0); Lymphocytes % 21.7 % (24.0-44.0); Mean Cell Volume 87.3 fl (78-100); Mean Corpuscular Hemoglobin 26.6 pg (26-32); Mean Corpuscular Hgb Concent. 30.5 g/dl (32-36); Mean Platelet Volume 10.5 fl (7.5-11.0); Monocyte (Absolute #) 0.81 (0.0-1.3); Monocytes % 8.8 % (0.0-12.0); Neutrophil % 63.3 % (36.0-66.0); Platelet Count 205 K/mm3 (150-450); Red Blood Count 5.34 M/mm3 (4.1-5.6); White Blood Count 9.2 K/mm3 (4.0-10.5)
[2021-06-14 06:11] LABS: ALBUMIN 3.7 g/dL (3.5-5.0); ANION GAP 13.4 MEQ/L (5-15); BILIRUBIN,TOTAL 0.5 mg/dL (0.2-1.3); Calcium 9.3 mg/dL (8.4-10.2); Creatinine 1 1.55 mg/dL (0.66-1.25); EST GLOMERULAR FILTRATION RATE 54.2 ML/MIN; MAGNESIUM 1.5 mg/dL (1.6-2.3); Total Protein 6.5 g/dL (6.3-8.2)
[2021-06-14] MEDS: Magnesium 1 Gm / 100 Ml D5W*** 100 ML IV SCH ×2 (06:28→07:23)
--- NOTE | 2021-06-14 06:30 | ERPHSYRPT ---
- History of Present Illness Time Seen by Provider: 06/14/21 05:08 Source: patient Exam Limitations: no limitations Patient Subjective Stated Complaint: shortness of breath, wheezing Triage Nursing Assessment: pt is short of breath, wheezing, non prod cough which started yesterday morning but has just gotten worse. Pt woke up at 0300 and took 2 puffs of his inhaler but he did not get better. Pt has audible expiratory wheezes, bilat and throughout. Physician History: 36 years old morbidly obese male with history of hypertension, hyperlipidemia, diabetes mellitus, asthma presented in the ER with chief complaint of increasing shortness of breath and wheezing since yesterday initially with activity and now even resting. Patient reports minimal nonproductive cough, chest tightness and pressure but no pain or palpitations. Did take albuterol inhaler with minimal relief. Denies any sick contact. Timing/Duration: yesterday, constant, gradual onset, worse Activities at Onset: activity, rest Severity of Dyspnea-Max: moderate Severity of Dyspnea-Current: moderate Possible Cause: occasional episodes Modifying Factors: Improves With: albuterol inhaler. Worsens With: coughing, exertion Associated Symptoms: cough, wheezing, productive cough, tightness, No chest pain/discomfort Allergies/Adverse Reactions: No Known Drug Allergies Allergy (Verified 06/14/21 05:10) Home Medications: Metformin HCl [Glucophage] 1,000 mg PO BID 02/14/20 [History] Metoprolol Succinate 50 mg [Toprol Xl 50 MG] 1 tab PO DAILY 02/14/20 [History] Simvastatin 20Mg [Zocor 20Mg] 1 tab PO DAILY 02/14/20 [History] Albuterol Sulfate [Albuterol Sulfate Hfa] 8.5 gm IH Q4H PRN PRN 07/31/20 [Hist ory] Cetirizine HCl [Allergy Relief] 10 mg PO DAILY 07/31/20 [History] Lisinopril 20 mg [Zestril 20 MG] 40 mg PO DAILY 07/31/20 [History] Sitagliptin Phosphate 50 MG [Januvia 50 MG] 100 mg PO DAILY 07/31/20 [History] glipiZIDE [Glipizide] 2 mg PO DAILY 06/04/21 [History] Hx Tetanus, Diphtheria Vaccination/Date Given: Yes Hx Influenza Vaccination/Date Given: No Hx Pneumococcal Vaccination/Date Given: No Immunizations Up to Date: Yes Travel Risk - International Travel Have you traveled outside of the country in past 3 weeks: No - Coronavirus Screening Are you exhibiting any of the following symptoms?: Yes Symptoms: Cough: New Onset, Shortness of Breath Close contact with a COVID-19 positive Pt in past 14-21 Days: No - Vaccine Status Have you recieved a Covid-19 vaccination: No - Review of Systems Constitutional: No Symptoms Eyes: No Symptoms Ears, Nose, & Throat: No Symptoms Respiratory: Cough, Dyspnea, Dyspnea on Exertion (WIL[facility]) Cardiac: No Symptoms Abdominal/Gastrointestinal: No Symptoms Genitourinary Symptoms: No Symptoms Musculoskeletal: No Symptoms Skin: No Symptoms Neurological: No Symptoms Psychological: No Symptoms Endocrine: No Symptoms Hematologic/Lymphatic: No Symptoms Immunological/Allergic: No Symptoms - Past Medical History Pertinent Past Medical History: Yes Neurological History: No Pertinent History ENT History: No Pertinent History Cardiac History: Hypertension Respiratory History: Asthma, Bronchitis Endocrine Medical History: Diabetes Type II Musculoskeletal History: No Pertinent History GI Medical History: No Pertinent History History: Renal Disease Psycho-Social History: No Pertinent History Other Medical History: stage 3 kidney disease - Past Surgical History Past Surgical History: Yes Neuro Surgical History: No Pertinent History Cardiac: No Pertinent History Respiratory: No Pertinent History Gastrointestinal: Appendectomy Genitourinary: No Pertinent History Musculoskeletal: No Pertinent History Male Surgical History: No Pertinent History Other Surgical History: ARM SURG,KNEE SURG - Social History Smoking Status: Never smoker Exposure to second hand smoke: No Drug Use: none Patient Lives Alone: No - Nursing Vital Signs Nursing Vital Signs: Initial Vital Signs Temperature 98.2 F 06/14/21 05:00 Pulse Rate 80 06/14/21 05:00 Respiratory Rate 22 06/14/21 05:00 Blood Pressure 128/91 06/14/21 05:00 O2 Sat by Pulse Oximetry 96 06/14/21 05:00 Pain Scale Pain Intensity 0 - Physical Exam General Appearance: mild distress, alert Eye Exam: PERRL/EOMI, eyes nml inspection Ears, Nose, Throat Exam: hearing grossly normal, normal ENT inspection, normal pharynx Neck Exam: normal inspection, non-tender, full range of motion Respiratory Exam: diminished breath sounds, crackles/rales, rhonchi, wheezing Cardiovascular/Chest Exam: normal heart sounds, regular rate/rhythm Abdominal/Gastrointestinal Exam: soft, No tenderness Extremity Exam: non-tender, normal range of motion Neurologic Exam: alert, oriented x 3, cooperative, 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 as tested Skin Exam: normal color SpO2 Interpretation: normal SpO2: 91 O2 Delivery: Room Air - Course EKG Interpreted by Me: RATE (82), Sinus Rhythm, NORMAL AXIS, NORMAL INTERVALS, NORMAL QRS Ordered Tests: Active Orders 24 hr Category Date Time Status CHEST 1 VIEW (PORTABLE) Stat Exams 06/14/21 05:33 Taken CBC W DIFF Stat Lab 06/14/21 05:25 Completed CMP Stat Lab 06/14/21 05:25 Completed D-DIMER QUANTITATIVE Stat Lab 06/14/21 05:25 Completed Lactic Acid Stat Lab 06/14/21 05:40 Completed MAGNESIUM Stat Lab 06/14/21 05:25 Completed NT PRO BNP Stat Lab 06/14/21 05:25 Completed TROPONIN Q3H Lab 06/14/21 05:25 Received TROPONIN Q3H Lab 06/14/21 08:45 Ordered TROPONIN Q3H Lab 06/14/21 11:45 Ordered TROPONIN Q3H Lab 06/14/21 14:45 Ordered TROPONIN Q3H Lab 06/14/21 17:45 Ordered UA W/RFX UR CULTURE Stat Lab 06/14/21 05:33 Ordered Respiratory Therapy Assessment DAILY RT 06/14/21 05:43 Active Medication Summary Discontinued Medications Generic Name Dose Route Start Last Admin Trade Name Freq PRN Reason Stop Dose Admin Albuterol/Ipratropium Confirm 06/14/21 05:29 Ipratropium/Albuterol Sulfate 3 Ml Ampul.Neb Administered 06/14/21 05:30 Dose 3 ml IH .STK-MED ONE Albuterol/Ipratropium 3 ml 06/14/21 05:42 06/14/21 05:30 Ipratropium/Albuterol Sulfate 3 Ml Ampul.Neb IH 06/14/21 05:43 3 ml STAT ONE Administration Methylprednisolone Sodium 0 mg 06/14/21 05:29 06/14/21 05:32 Succinate 125 mg/ Sterile IV 06/14/21 05:30 125 mg Water 2 ml STAT ONE Administration Methylprednisolone Sodium Succinate Confirm 06/14/21 05:31 Methylprednis Sod Succ 125 Mg/2 Ml Vial Administered 06/14/21 05:32 Dose 125 mg .ROUTE .STK-MED ONE Lab/Rad Data: Laboratory Result Diagrams 06/14/21 05:25 06/14/21 05:25 Laboratory Results 06/14/21 06/14/21 06/14/21 Range/Units 05:40 05:25 05:25 WBC (4.0-10.5) K/mm3 RBC (4.1-5.6) M/mm3 Hgb (12.5-18.0) gm/dl Hct (42-50) % MCV (78-100) fl MCH (26-32) pg MCHC (32-36) g/dl RDW (11.5-14.0) % Plt Count (150-450) K/mm3 MPV (7.5-11.0) fl Gran % (36.0-66.0) % Eos # (Auto) (0-0.5) Absolute Lymphs (auto) (1.0-4.6) Absolute Monos (auto) (0.0-1.3) Lymphocytes % (24.0-44.0) % Monocytes % (0.0-12.0) % Eosinophils % (0.00-5.0) % Basophils % (0.0-0.4) % Absolute Granulocytes (1.4-6.9) Basophils # (0-0.4) D-Dimer 402 (215-500) ng/mL Sodium 137 (137-145) mmol/L Potassium 5.0 (3.5-5.1) mmol/L Chloride 104 (98-107) mmol/L Carbon Dioxide 24 (22-30) mmol/L Anion Gap 13.4 (5-15) MEQ/L BUN 26 H (9-20) mg/dL Creatinine 1.55 H (0.66-1.25) mg/dL Estimated GFR 54.2 ML/MIN Glucose 115 H (74-106) mg/dL Lactic Acid 0.9 (0.4-2.0) Calcium 9.3 (8.4-10.2) mg/dL Magnesium 1.5 L (1.6-2.3) mg/dL Total Bilirubin 0.50 (0.2-1.3) mg/dL AST 21 (17-59) U/L ALT 23 (0-50) U/L Alkaline Phosphatase 81 (38-126) U/L NT-Pro-B Natriuret Pep 104 (0-450) pg/mL Serum Total Protein 6.5 (6.3-8.2) g/dL Albumin 3.7 (3.5-5.0) g/dL 06/14/21 Range/Units 05:25 WBC 9.2 (4.0-10.5) K/mm3 RBC 5.34 (4.1-5.6) M/mm3 Hgb 14.2 (12.5-18.0) gm/dl Hct 46.6 (42-50) % MCV 87.3 (78-100) fl MCH 26.6 (26-32) pg MCHC 30.5 L (32-36) g/dl RDW 17.0 H (11.5-14.0) % Plt Count 205 (150-450) K/mm3 MPV 10.5 (7.5-11.0) fl Gran % 63.3 (36.0-66.0) % Eos # (Auto) 0.50 (0-0.5) Absolute Lymphs (auto) 2.00 (1.0-4.6) Absolute Monos (auto) 0.81 (0.0-1.3) Lymphocytes % 21.7 L (24.0-44.0) % Monocytes % 8.8 (0.0-12.0) % Eosinophils % 5.4 H (0.00-5.0) % Basophils % 0.8 (0.0-0.4) % Absolute Granulocytes 5.82 (1.4-6.9) Basophils # 0.07 (0-0.4) D-Dimer (215-500) ng/mL Sodium (137-145) mmol/L Potassium (3.5-5.1) mmol/L Chloride (98-107) mmol/L Carbon Dioxide (22-30) mmol/L Anion Gap (5-15) MEQ/L BUN (9-20) mg/dL Creatinine (0.66-1.25) mg/dL Estimated GFR ML/MIN Glucose (74-106) mg/dL Lactic Acid (0.4-2.0) Calcium (8.4-10.2) mg/dL Magnesium (1.6-2.3) mg/dL Total Bilirubin (0.2-1.3) mg/dL AST (17-59) U/L ALT (0-50) U/L Alkaline Phosphatase (38-126) U/L NT-Pro-B Natriuret Pep (0-450) pg/mL Serum Total Protein (6.3-8.2) g/dL Albumin (3.5-5.0) g/dL - Progress Progress: improved Air Movement: fair Progress Note: 06/14/21 06:37 36 years old is evaluated for wheezing/shortness of breath. Is given DuoNeb and Solu-Medrol, on reevaluation feeling better. Has normal white count, has stable renal function with CKD. EKG showed sinus rhythm without any ST elevati on and negative initial troponin. Also has negative D-dimers. Chest x-ray showed bilateral airspace disease/multifocal pneumonia. Patient oxygen saturation was dropping to 88%, placed on 2 L oxygen. He is given Zithromax and Rocephin. Also has mildly low magnesium and given replacement. Discussed with Dr. Zimmerman, reviewed history, work-up and patient is excepted for admission. 06/14/21 06:41 Blood Culture(s) Obtained: Yes Antibiotics given: Yes Discussed with : Alanis Will see patient in: hospital (observation) Counseled pt/family regarding: lab results, diagnosis, rad results - Departure Departure Disposition: Observation Clinical Impression: Acute respiratory failure with hypoxia, Pneumonia, Hypomagnesemia Condition: Stable Critical Care Time: No Referrals: ALIA HERNANDEZ MD [Primary Care Provider] - Follow up/PCP as directed
[2021-06-14] MEDS ORDERED: ROCEPHIN 2 Gm-D5w 50ML BAG** 2 G/50 ML IVPB IV STA (06:31)
[2021-06-14] MEDS ORDERED: Zithromax 500 MG/ 250 ML NaCl Premix 500 MG/250 ML IVPB IV STA (06:31)
[2021-06-14] MEDS ORDERED: ROCEPHIN 2 Gm-D5w 50ML BAG** 2 G/50 ML IVPB IV ONE (07:57)
[2021-06-14 07:59] LABS: INFLUENZA A NEGATIVE (NEGATIVE); INFLUENZA B NEGATIVE (NEGATIVE); RESPIRATORY SYNCTIAL VIRUS NEGATIVE (Negative); SARS-CoV-2 Xpert Express NEGATIVE (NEGATIVE)
[2021-06-14] MEDS ORDERED: Zithromax 500 MG/ 250 ML NaCl Premix 500 MG/250 ML IVPB IV ONE (08:31)
[2021-06-14] MEDS ORDERED: Zofran 4 MG/2 ML VIAL IV PRN (08:56)
[2021-06-14] MEDS ORDERED: MORPHINE SULFATE 2 MG INJ IV PRN (08:56)
[2021-06-14] MEDS ORDERED: TYLENOL 325 MG PO PRN (08:56)
--- NOTE | 2021-06-14 09:23 | XRAY ---
Indication: Short of breath. Comparison: July 31, 2020. Portable chest demonstrates new right upper lobe patchy airspace disease without consolidation/large effusion. Remaining heart, left lung, and bony thorax normal.
[2021-06-14 09:50] LABS: Mucus SLIGHT /HPF (NEGATIVE)
[2021-06-14 09:53] LABS: Appearance CLEAR (CLEAR); Bilirubin NEGATIVE (NEGATIVE); Glucose NEGATIVE (NEGATIVE); Ketones NEGATIVE (NEGATIVE); Nitrite NEGATIVE (NEGATIVE); Ph 5.5 (5-6); Protein,Urine Dip NEGATIVE (Negative); RBC NEGATIVE Ery/ul (0-5); Urine Cultured Indicated? NO; Urobilinogen 0.2 mg/dL (0-1)
[2021-06-14] MEDS: PROTONIX 40 MG IV IV SCH (09:54)
[2021-06-14 09:57] LABS: Dipstick done @ ? MAIN LAB
[2021-06-14] MEDS: DUONEB 0.5-3 MG/3 ml Neb IH SCH ×4 (10:00→18:53)
[2021-06-14] MEDS: HUMALOG SQ PRN ×3 (11:50→22:21)
[2021-06-14] MEDS: solu-MEDROL 80 MG, Sterile H2O 10 ml 2 ML IV SCH ×6 (11:50→23:50)
--- NOTE | 2021-06-14 20:40 | PCM.HP ---
History of Present Illness - Chief Complaint Chief Complaint: Acute hypoxic respiratory failure, pneumonia History of Present Illness: Mr.ROBERTSON BAIG is a 36 year old male with Hx asthma presented to ER with difficulty breathing.He tried using an inhaler but no relief. Medications & Allergies Home Medications: Home Medication List Metformin HCl [Glucophage] 1,000 mg PO BID 02/14/20 [History Confirmed 06/14/21] Metoprolol Succinate 50 mg [Toprol Xl 50 MG] 1 tab PO DAILY 02/14/20 [History Confirmed 06/14/21] Simvastatin 20Mg [Zocor 20Mg] 1 tab PO DAILY 02/14/20 [History Confirmed 06/14/21] Albuterol Sulfate [Albuterol Sulfate Hfa] 8.5 gm IH Q4H PRN PRN 07/31/20 [History Confirmed 06/14/21] Cetirizine HCl [Allergy Relief] 10 mg PO DAILY 07/31/20 [History Confirmed 06/14/21] Lisinopril 20 mg [Zestril 20 MG] 40 mg PO DAILY 07/31/20 [History Confirmed 06/14/21] Sitagliptin Phosphate 50 MG [Januvia 50 MG] 100 mg PO DAILY 07/31/20 [History Confirmed 06/14/21] glipiZIDE [Glipizide] 2 mg PO DAILY 07/31/20 [History Confirmed 06/14/21] Hydrochlorothiazide 25 mg [hydroDIURIL 25 MG] 25 mg PO DAILY #30 tablet 08/01/20 [Rx Confirmed 06/14/21] Allergies/Adverse Reactions: Allergies Allergy/AdvReac Type Severity Reaction Status Date / Time No Known Drug Allergies Allergy Verified 06/14/21 05:10 - Past Medical History Past Medical History: Yes Neurological History: No Pertinent History ENT History: No Pertinent History Cardiac History: Hypertension Respiratory History: Asthma, Bronchitis Endocrine Medical History: Diabetes Type II Musculoskelatal History: No Pertinent History GI Medical History: No Pertinent History History: Renal Disease Pyscho-Social History: No Pertinent History Comment: stage 3 kidney disease (Dr. Greene - has appt next monday) - Past Surgical History Past Surgical History: Yes Neuro Surgical History: No Pertinent History Cardiac History: No Pertinent History Respiratory Surgery: No Pertinent History GI Surgical History: Appendectomy Genitourinary Surgical Hx: No Pertinent History Musculskeletal Surgical Hx: No Pertinent History Male Surgical History: No Pertinent History Other Surgical History: left ARM SURG, right KNEE SURG - Social History Smoking Status: Never smoker Exposure to second hand smoke: No Alcohol: Rarely Drug Use: none - Physical Exam Vital Signs: Vital Signs - 24 hr Temp Pulse Resp BP Pulse Ox 06/14/21 19:08 98.0 F 75 18 131/74 93 L 06/14/21 18:54 96 H 20 92 L 06/14/21 16:00 97.8 F 94 H 21 112/59 92 L 06/14/21 14:28 94 H 16 92 L 06/14/21 11:39 97.5 F 87 20 105/51 92 L 06/14/21 10:00 84 18 92 L 06/14/21 09:00 97.9 F 73 16 124/70 97 06/14/21 08:56 97.9 F 73 16 124/70 97 06/14/21 08:55 97.9 F 73 16 124/70 97 06/14/21 07:29 71 17 127/77 93 L 06/14/21 06:42 91 L 06/14/21 06:00 74 16 131/70 91 L 06/14/21 05:30 80 18 95 06/14/21 05:01 22 95 06/14/21 05:00 98.2 F 80 22 128/91 96 Results - Labs Lab/Micro Results: Lab Results-Last 24 Hours 06/14/21 06/14/21 06/14/21 Range/Units 05:25 05:25 05:25 WBC 9.2 (4.0-10.5) K/mm3 RBC 5.34 (4.1-5.6) M/mm3 Hgb 14.2 (12.5-18.0) gm/dl Hct 46.6 (42-50) % MCV 87.3 (78-100) fl MCH 26.6 (26-32) pg MCHC 30.5 L (32-36) g/dl RDW 17.0 H (11.5-14.0) % Plt Count 205 (150-450) K/mm3 MPV 10.5 (7.5-11.0) fl Gran % 63.3 (36.0-66.0) % Eos # (Auto) 0.50 (0-0.5) Absolute Lymphs (auto) 2.00 (1.0-4.6) Absolute Monos (auto) 0.81 (0.0-1.3) Lymphocytes % 21.7 L (24.0-44.0) % Monocytes % 8.8 (0.0-12.0) % Eosinophils % 5.4 H (0.00-5.0) % Basophils % 0.8 (0.0-0.4) % Absolute Granulocytes 5.82 (1.4-6.9) Basophils # 0.07 (0-0.4) D-Dimer 402 (215-500) ng/mL Sodium 137 (137-145) mmol/L Potassium 5.0 (3.5-5.1) mmol/L Chloride 104 (98-107) mmol/L Carbon Dioxide 24 (22-30) mmol/L Anion Gap 13.4 (5-15) MEQ/L BUN 26 H (9-20) mg/dL Creatinine 1.55 H (0.66-1.25) mg/dL Estimated GFR 54.2 ML/MIN Glucose 115 H (74-106) mg/dL POC Glucometer (74 to 106) mg/dL Lactic Acid (0.4-2.0) Calcium 9.3 (8.4-10.2) mg/dL Magnesium 1.5 L (1.6-2.3) mg/dL Total Bilirubin 0.50 (0.2-1.3) mg/dL AST 21 (17-59) U/L ALT 23 (0-50) U/L Alkaline Phosphatase 81 (38-126) U/L Troponin I (0.000-0.034) ng/mL NT-Pro-B Natriuret Pep 104 (0-450) pg/mL Serum Total Protein 6.5 (6.3-8.2) g/dL Albumin 3.7 (3.5-5.0) g/dL Urinalys Dipstick Clnc Urine Color (YELLOW) Urine Appearance (CLEAR) Urine pH (5-6) Ur Specific Island (1.005-1.025) POC Urine Protein Conf (Negative) Urine Ketones (NEGATIVE) Urine Nitrite (NEGATIVE) Urine Bilirubin (NEGATIVE) Urine Urobilinogen (0-1) mg/dL Urine Leukocytes (NEGATIVE) Urine WBC (Auto) (0-5) /HPF Urine RBC (0-5) Chintan/ul Urine Mucus (Auto) (NEGATIVE) /HPF Ur Culture Indicated? Urine Glucose (NEGATIVE) mg/dL Influenza Type A Ag (NEGATIVE) Influenza Type B Ag (NEGATIVE) RSV (PCR) (Negative) SARS-CoV-2 (PCR) (NEGATIVE) 06/14/21 06/14/21 06/14/21 Range/Units 05:25 05:40 07:15 WBC (4.0-10.5) K/mm3 RBC (4.1-5.6) M/mm3 Hgb (12.5-18.0) gm/dl Hct (42-50) % MCV (78-100) fl MCH (26-32) pg MCHC (32-36) g/dl RDW (11.5-14.0) % Plt Count (150-450) K/mm3 MPV (7.5-11.0) fl Gran % (36.0-66.0) % Eos # (Auto) (0-0.5) Absolute Lymphs (auto) (1.0-4.6) Absolute Monos (auto) (0.0-1.3) Lymphocytes % (24.0-44.0) % Monocytes % (0.0-12.0) % Eosinophils % (0.00-5.0) % Basophils % (0.0-0.4) % Absolute Granulocytes (1.4-6.9) Basophils # (0-0.4) D-Dimer (215-500) ng/mL Sodium (137-145) mmol/L Potassium (3.5-5.1) mmol/L Chloride (98-107) mmol/L Carbon Dioxide (22-30) mmol/L Anion Gap (5-15) MEQ/L BUN (9-20) mg/dL Creatinine (0.66-1.25) mg/dL Estimated GFR ML/MIN Glucose (74-106) mg/dL POC Glucometer (74 to 106) mg/dL Lactic Acid 0.9 (0.4-2.0) Calcium (8.4-10.2) mg/dL Magnesium (1.6-2.3) mg/dL Total Bilirubin (0.2-1.3) mg/dL AST (17-59) U/L ALT (0-50) U/L Alkaline Phosphatase (38-126) U/L Troponin I < 0.012 (0.000-0.034) ng/mL NT-Pro-B Natriuret Pep (0-450) pg/mL Serum Total Protein (6.3-8.2) g/dL Albumin (3.5-5.0) g/dL Urinalys Dipstick Clnc Urine Color (YELLOW) Urine Appearance (CLEAR) Urine pH (5-6) Ur Specific Island (1.005-1.025) POC Urine Protein Conf (Negative) Urine Ketones (NEGATIVE) Urine Nitrite (NEGATIVE) Urine Bilirubin (NEGATIVE) Urine Urobilinogen (0-1) mg/dL Urine Leukocytes (NEGATIVE) Urine WBC (Auto) (0-5) /HPF Urine RBC (0-5) Chintan/ul Urine Mucus (Auto) (NEGATIVE) /HPF Ur Culture Indicated? Urine Glucose (NEGATIVE) mg/dL Influenza Type A Ag NEGATIVE (NEGATIVE) Influenza Type B Ag NEGATIVE (NEGATIVE) RSV (PCR) NEGATIVE (Negative) SARS-CoV-2 (PCR) NEGATIVE (NEGATIVE) 06/14/21 06/14/21 06/14/21 Range/Units 08:35 08:48 11:40 WBC (4.0-10.5) K/mm3 RBC (4.1-5.6) M/mm3 Hgb (12.5-18.0) gm/dl Hct (42-50) % MCV (78-100) fl MCH (26-32) pg MCHC (32-36) g/dl RDW (11.5-14.0) % Plt Count (150-450) K/mm3 MPV (7.5-11.0) fl Gran % (36.0-66.0) % Eos # (Auto) (0-0.5) Absolute Lymphs (auto) (1.0-4.6) Absolute Monos (auto) (0.0-1.3) Lymphocytes % (24.0-44.0) % Monocytes % (0.0-12.0) % Eosinophils % (0.00-5.0) % Basophils % (0.0-0.4) % Absolute Granulocytes (1.4-6.9) Basophils # (0-0.4) D-Dimer (215-500) ng/mL Sodium (137-145) mmol/L Potassium (3.5-5.1) mmol/L Chloride (98-107) mmol/L Carbon Dioxide (22-30) mmol/L Anion Gap (5-15) MEQ/L BUN (9-20) mg/dL Creatinine (0.66-1.25) mg/dL Estimated GFR ML/MIN Glucose (74-106) mg/dL POC Glucometer 260 H (74 to 106) mg/dL Lactic Acid (0.4-2.0) Calcium (8.4-10.2) mg/dL Magnesium (1.6-2.3) mg/dL Total Bilirubin (0.2-1.3) mg/dL AST (17-59) U/L ALT (0-50) U/L Alkaline Phosphatase (38-126) U/L Troponin I < 0.012 (0.000-0.034) ng/mL NT-Pro-B Natriuret Pep (0-450) pg/mL Serum Total Protein (6.3-8.2) g/dL Albumin (3.5-5.0) g/dL Urinalys Dipstick Clnc MAIN LAB Urine Color YELLOW (YELLOW) Urine Appearance CLEAR (CLEAR) Urine pH 5.5 (5-6) Ur Specific [place] 1.020 (1.005-1.025) POC Urine Protein Conf NEGATIVE (Negative) Urine Ketones NEGATIVE (NEGATIVE) Urine Nitrite NEGATIVE (NEGATIVE) Urine Bilirubin NEGATIVE (NEGATIVE) Urine Urobilinogen 0.2 (0-1) mg/dL Urine Leukocytes NEGATIVE (NEGATIVE) Urine WBC (Auto) NONE (0-5) /HPF Urine RBC NEGATIVE (0-5) Chintan/ul Urine Mucus (Auto) SLIGHT (NEGATIVE) /HPF Ur Culture Indicated? NO Urine Glucose NEGATIVE (NEGATIVE) mg/dL Influenza Type A Ag (NEGATIVE) Influenza Type B Ag (NEGATIVE) RSV (PCR) (Negative) SARS-CoV-2 (PCR) (NEGATIVE) 06/14/21 06/14/21 Range/Units 12:00 15:52 WBC (4.0-10.5) K/mm3 RBC (4.1-5.6) M/mm3 Hgb (12.5-18.0) gm/dl Hct (42-50) % MCV (78-100) fl MCH (26-32) pg MCHC (32-36) g/dl RDW (11.5-14.0) % Plt Count (150-450) K/mm3 MPV (7.5-11.0) fl Gran % (36.0-66.0) % Eos # (Auto) (0-0.5) Absolute Lymphs (auto) (1.0-4.6) Absolute Monos (auto) (0.0-1.3) Lymphocytes % (24.0-44.0) % Monocytes % (0.0-12.0) % Eosinophils % (0.00-5.0) % Basophils % (0.0-0.4) % Absolute Granulocytes (1.4-6.9) Basophils # (0-0.4) D-Dimer (215-500) ng/mL Sodium (137-145) mmol/L Potassium (3.5-5.1) mmol/L Chloride (98-107) mmol/L Carbon Dioxide (22-30) mmol/L Anion Gap (5-15) MEQ/L BUN (9-20) mg/dL Creatinine (0.66-1.25) mg/dL Estimated GFR ML/MIN Glucose (74-106) mg/dL POC Glucometer 366 H (74 to 106) mg/dL Lactic Acid (0.4-2.0) Calcium (8.4-10.2) mg/dL Magnesium (1.6-2.3) mg/dL Total Bilirubin (0.2-1.3) mg/dL AST (17-59) U/L ALT (0-50) U/L Alkaline Phosphatase (38-126) U/L Troponin I < 0.012 (0.000-0.034) ng/mL NT-Pro-B Natriuret Pep (0-450) pg/mL Serum Total Protein (6.3-8.2) g/dL Albumin (3.5-5.0) g/dL Urinalys Dipstick Clnc Urine Color (YELLOW) Urine Appearance (CLEAR) Urine pH (5-6) Ur Specific [place] (1.005-1.025) POC Urine Protein Conf (Negative) Urine Ketones (NEGATIVE) Urine Nitrite (NEGATIVE) Urine Bilirubin (NEGATIVE) Urine Urobilinogen (0-1) mg/dL Urine Leukocytes (NEGATIVE) Urine WBC (Auto) (0-5) /HPF Urine RBC (0-5) Chintan/ul Urine Mucus (Auto) (NEGATIVE) /HPF Ur Culture Indicated? Urine Glucose (NEGATIVE) mg/dL Influenza Type A Ag (NEGATIVE) Influenza Type B Ag (NEGATIVE) RSV (PCR) (Negative) SARS-CoV-2 (PCR) (NEGATIVE) Accuchecks Date 06/14/21 Time 11:50 - Radiology Impressions Radiology Exams & Impressions: Radiology Procedures Category Date Time Status CHEST 1 VIEW (PORTABLE) Stat Exams 06/14/21 05:33 Completed - Other Procedures and Tests Respiratory Therapy 06/14/21 05:43 Respiratory Therapy Assessment DAILY 06/14/21 08:56 Oxygen Nasal Cannula 2 lpm
[2021-06-14] MEDS: Glucophage 500 MG PO SCH (22:20)
[2021-06-15 05:10] LABS: Absolute Neutrophil Ct (ANC) 14.03 (1.4-6.9); Basophil (Absolute #) 0.01 (0-0.4); Eosinophil (Absolute #) 0 (0-0.5); Hematocrit 47.8 % (42-50); Hemoglobin 14.9 gm/dl (12.5-18.0); Lymphocytes % 5.3 % (24.0-44.0); Mean Cell Volume 84.2 fl (78-100); Mean Corpuscular Hemoglobin 26.2 pg (26-32); Mean Corpuscular Hgb Concent. 31.2 g/dl (32-36); Mean Platelet Volume 10.4 fl (7.5-11.0); Monocyte (Absolute #) 0.33 (0.0-1.3); Monocytes % 2.2 % (0.0-12.0); Neutrophil % 92.4 % (36.0-66.0); Platelet Count 229 K/mm3 (150-450); Red Blood Count 5.68 M/mm3 (4.1-5.6); Red Cell Distribution Width 17.2 % (11.5-14.0); White Blood Count 15.2 K/mm3 (4.0-10.5)
[2021-06-15 05:33] LABS: ALBUMIN 4.1 g/dL (3.5-5.0); ANION GAP 17.5 MEQ/L (5-15); BILIRUBIN,TOTAL 0.6 mg/dL (0.2-1.3); Creatinine 1 1.61 mg/dL (0.66-1.25); EST GLOMERULAR FILTRATION RATE 51.9 ML/MIN; Total Protein 7.4 g/dL (6.3-8.2)
[2021-06-15] MEDS ORDERED: solu-MEDROL ONE (06:28)
[2021-06-15] MEDS: solu-MEDROL 80 MG, Sterile H2O 10 ml 2 ML IV SCH ×2 (06:42)
[2021-06-15] MEDS: DUONEB 0.5-3 MG/3 ml Neb IH SCH (07:08)
[2021-06-15] MEDS: Glucophage 500 MG PO SCH (07:38)
[2021-06-15] MEDS ORDERED: Glucotrol 5 MG PO SCH (08:00)
[2021-06-15 08:25] VITALS: BP 131/77; PULSE 91; O2SAT 92
[2021-06-15] MEDS: PROTONIX 40 MG IV IV SCH (09:20)
[2021-06-15] MEDS ORDERED: Zestril 20 MG PO SCH (10:00)
[2021-06-15] MEDS ORDERED: Toprol Xl 50 MG PO SCH (10:00)
[2021-06-15] MEDS ORDERED: ROCEPHIN 2 Gm-D5w 50ML BAG** 2 G/50 ML IVPB IV SCH (10:00)
[2021-06-15] MEDS ORDERED: CLARITIN 10 MG PO SCH (10:00)
[2021-06-15] MEDS ORDERED: Zithromax 500 MG/ 250 ML NaCl Premix 500 MG/250 ML IVPB IV SCH (10:00)
[2021-06-15] MEDS ORDERED: NON-FORMULARY ITEM (Cetirizine Hcl [Allergy Relief] 10 MG Capsule) PO SCH (10:00)
[2021-06-15] MEDS ORDERED: ZOCOR 20MG PO SCH ×2 (10:00→22:00)
[2021-06-15] MEDS ORDERED: hydroDIURIL 25 MG PO SCH (10:00)
[2021-06-15] MEDS ORDERED: Januvia 50 MG PO SCH (10:00)
== END 2021-06-15 11:40 | disposition home or self-care (01) ==
LOC: ED 05:00 → MED SURG 08:52
PROVIDERS: ADMIT Family Medicine; ATTEND Family Medicine
DX: J96.01 Acute respiratory failure with hypoxia (principal); J18.9 Pneumonia, unspecified organism; J45.909 Unspecified asthma, uncomplicated; E11.22 Type 2 diabetes mellitus with diabetic chronic kidney disease; I12.9 Hypertensive chronic kidney disease with stage 1 through stage 4 chronic kidney disease, or unspecified chronic kidney disease; N18.30 Chronic kidney disease, stage 3 unspecified; Z79.899 Other long term (current) drug therapy
CPT/HCPCS: 0241U; 36415; 71045; 80053; 81015; 82947; 83605; 83735; 83880; 84484; 85025; 85379; 87040; 94640; 94760; 96374; 96375; 99285; 93268; J0456; J0696; J1817; J2930; J3475; A9270-GY; G0378

== ENCOUNTER 2021-08-05 23:00 | Emergency (ER) | payer BC ==
[2021-08-05] MEDS ORDERED: MORPHINE SULFATE 4 MG INJ IM ONE (23:23)
[2021-08-05] MEDS ORDERED: MORPHINE SULFATE 4 MG INJ ONE (23:40)
--- NOTE | 2021-08-05 23:59 | ERPHSYRPT ---
- History of Present Illness Time Seen by Provider: 08/05/21 23:05 Source: patient Exam Limitations: no limitations Patient Subjective Stated Complaint: pt states " My L knee started hurting this morning and now I can barely walk on it." Triage Nursing Assessment: Pt presents to ED in a wheelchair, pt ambulatory to bed by self, pt c/o L knee pain that started this morning and has gradually gotten worse, pt denies injury Physician History: 36 years old morbidly obese male with multiple medical problems presented in the ER with chief complaint of left knee pain since morning without any fall or trauma. Denies any knee swelling and pain is more in the medial aspect. Aggravated with activity and making it difficult to have weightbearing. Method of Injury: unknown Occurred: this morning Quality: sharpness Severity of Pain-Max: moderate Severity of Pain-Current: moderate Lower Extremities Pain: knee: left Modifying Factors: Improves With: immobilization, rest. Worsens With: movement Allergies/Adverse Reactions: No Known Drug Allergies Allergy (Verified 08/05/21 23:12) Home Medications: Metformin HCl [Glucophage] 1,000 mg PO BID 02/14/20 [History] Metoprolol Succinate 50 mg [Toprol Xl 50 MG] 1 tab PO DAILY 02/14/20 [History] Simvastatin 20Mg [Zocor 20Mg] 1 tab PO DAILY 02/14/20 [History] Albuterol Sulfate [Albuterol Sulfate Hfa] 8.5 gm IH Q4H PRN PRN 07/31/20 [History] Cetirizine HCl [Allergy Relief] 10 mg PO DAILY 07/31/20 [History] Lisinopril 20 mg [Zestril 20 MG] 40 mg PO DAILY 07/31/20 [History] Sitagliptin Phosphate 50 MG [Januvia 50 MG] 100 mg PO DAILY 07/31/20 [History] glipiZIDE [Glipizide] 2 mg PO DAILY 07/31/20 [History] Hx Tetanus, Diphtheria Vaccination/Date Given: Yes Hx Influenza Vaccination/Date Given: No Hx Pneumococcal Vaccination/Date Given: No Immunizations Up to Date: Yes Travel Risk - International Travel Have you traveled outside of the country in past 3 weeks: No - Coronavirus Screening Are you exhibiting any of the following symptoms?: No Close contact with a COVID-19 positive Pt in past 14-21 Days: No - Vaccine Status Have you recieved a Covid-19 vaccination: No - Review of Systems Constitutional: No Symptoms Respiratory: No Symptoms Cardiac: No Symptoms Abdominal/Gastrointestinal: No Symptoms Genitourinary Symptoms: No Symptoms Musculoskeletal: Joint Pain Neurological: No Symptoms Hematologic/Lymphatic: No Symptoms Immunological/Allergic: No Symptoms - Past Medical History Pertinent Past Medical History: Yes Neurological History: No Pertinent History ENT History: No Pertinent History Cardiac History: Hypertension Respiratory History: Asthma, Bronchitis Endocrine Medical History: Diabetes Type II Musculoskeletal History: No Pertinent History GI Medical History: No Pertinent History History: Renal Disease Psycho-Social History: No Pertinent History Other Medical History: stage 3 kidney disease (Dr. Greene - has appt next monday) - Past Surgical History Past Surgical History: Yes Neuro Surgical History: No Pertinent History Cardiac: No Pertinent History Respiratory: No Pertinent History Gastrointestinal: Appendectomy Genitourinary: No Pertinent History Musculoskeletal: No Pertinent History Male Surgical History: No Pertinent History Other Surgical History: left ARM SURG, right KNEE SURG - Social History Smoking Status: Never smoker Exposure to second hand smoke: Yes Drug Use: none Patient Lives Alone: No - Nursing Vital Signs Nursing Vital Signs: Initial Vital Signs Temperature 97.4 F 08/05/21 23:12 Pulse Rate 99 H 08/05/21 23:12 Respiratory Rate 16 08/05/21 23:12 Blood Pressure 118/68 08/05/21 23:12 O2 Sat by Pulse Oximetry 95 08/05/21 23:12 Pain Scale Pain Intensity 8 - Physical Exam General Appearance: no apparent distress, alert Neck Exam: normal inspection, full range of motion Cardiovascular/Respiratory Exam: normal breath sounds, regular rate/rhythm Legs Exam: bilateral leg: non-tender, normal inspection, normal range of motion, no evidence of injury Knees Exam: right knee: non-tender, normal range of motion, left knee: bone tenderness (Medial aspect), pain, soft tissue tenderness, bilateral knee: normal inspection, no evidence of injury Neuro/Tendon Exam: normal sensation, normal motor functions Mental Status Exam: alert, oriented x 3, cooperative Skin Exam: normal color SpO2 Interpretation: normal SpO2: 95 O2 Delivery: Room Air Ordered Tests: Active Orders 24 hr Category Date Time Status KNEE (3 VIEWS) Stat Exams 08/05/21 23:38 Taken Medication Summary Discontinued Medications Generic Name Dose Route Start Last Admin Trade Name Adelina PRN Reason Stop Dose Admin Morphine Sulfate 4 mg 08/05/21 23:23 08/05/21 23:41 Morphine Sulfate 4 Mg/Ml Injection IM 08/05/21 23:24 4 mg STAT ONE Administration Morphine Sulfate Confirm 08/05/21 23:40 Morphine Sulfate 4 Mg/Ml Injection Administered 08/05/21 23:41 Dose 4 mg .ROUTE .STK-MED ONE - Progress Progress: improved, pain not gone completely Progress Note: 08/05/21 23:48 Given morphine for symptomatic relief. No obvious fracture dislocation x-rays reviewed by me, official report is pending. I believe patient has some ligamentous injury, recommended outpatient follow-up. Pain medications as needed. Counseled pt/family regarding: diagnosis, need for follow-up, rad results - Departure Departure Disposition: Home Clinical Impression: Acute pain of left knee Condition: Stable Critical Care Time: No Referrals: ALIA HERNANDEZ MD [Primary Care Provider] - Follow up/PCP as directed (1-2 days for reevaluation) ORTHO - MARIE WOOD NP [NON-STAFF PHY W/O PRIVILEGES] - Follow up/PCP as directed (1-2 days for reevaluation) Instructions: Knee Sprain (DC), Knee Pain (DC) Additional Instructions: Take Tylenol/pain medications as needed for knee pain. Avoid exertional activities. Use crutches and weightbearing as tolerated. Outpatient Ortho clinic follow-up. Return to ER for tractable pain, swelling, fever chills etc. Prescriptions: Hydrocodone/Acetaminophen [Hydrocodone-Acetamin 5-325 mg] 1 tab PO Q6HPRN PRN 3 Days #10 tablet MDD 4 PRN Reason: Pain
[2021-08-06 00:27] VITALS: BP 105/53; PULSE 95; O2SAT 96
--- NOTE | 2021-08-06 09:11 | XRAY ---
Indication: Pain. Comparison: None 3 view left knee demonstrates tiny nonspecific effusion. Incidental tiny medial supracondylar/tibial tuberosity bony exostosis and tiny anterior lower leg soft tissue calcified granulomas. No other bony, articular, or soft tissue abnormalities.
== END 2021-08-06 00:27 | disposition home or self-care (01) ==
LOC: ED 23:00
DX: M25.562 Pain in left knee (principal); E11.22 Type 2 diabetes mellitus with diabetic chronic kidney disease; I12.9 Hypertensive chronic kidney disease with stage 1 through stage 4 chronic kidney disease, or unspecified chronic kidney disease; N18.30 Chronic kidney disease, stage 3 unspecified; Z79.84 Long term (current) use of oral hypoglycemic drugs; Z79.899 Other long term (current) drug therapy; Z28.310 Unvaccinated for COVID-19; Z79.891 Long term (current) use of opiate analgesic
CPT/HCPCS: 73562; 96372; 99284; J2270

== ENCOUNTER 2022-04-04 04:54 | Emergency (ER) | payer BC ==
--- NOTE | 2022-04-04 05:27 | ERPHSYRPT ---
- History of Present Illness Time Seen by Provider: 04/04/22 05:15 Source: patient Exam Limitations: no limitations Patient Subjective Stated Complaint: Pt states he woke up with shortness of breath. Thinks it's related to his asthma Triage Nursing Assessment: Pt ambulated to room. Changed into gown per self. Pt audibly wheezing with expiration. He has a history of asthma and feels that it's related to his asthma. Used his inhaler at home with no relief. Bilateral lungs a&p wheezy on expiration Physician History: This is a morbidly obese 37-year-old white male patient of Dr. Hernandez who was sleeping and woke up suddenly because he was short of breath. He felt he was wheezing. He gave himself a nebulizer treatment and this did help some. He denies chest pain. He denies abdominal pain. He does not have any nausea vomiting or diarrhea. Patient does not smoke cigarettes. He is not exposed to smoke. He has not had a fever. Patient also has a history of hyperlipidemia, hypertension, asthma, renal disease and type 2 diabetes. Patient has had no hemoptysis. Patient has no calf pain. He has had no cough of any kind. Timing/Duration: today Cough Quality/Degree: no cough Possible Cause: occasional episodes Associated Symptoms: shortness of breath, wheezing, No chest pain/soreness, No cough, No muscle aches, No sore throat Allergies/Adverse Reactions: No Known Drug Allergies Allergy (Verified 04/04/22 05:27) Home Medications: Metformin HCl [Glucophage] 1,000 mg PO BID 02/14/20 [History] Metoprolol Succinate 50 mg [Toprol Xl 50 MG] 1 tab PO DAILY 02/14/20 [History] Simvastatin 20Mg [Zocor 20Mg] 1 tab PO DAILY 02/14/20 [History] Albuterol Sulfate [Albuterol Sulfate Hfa] 8.5 gm IH Q4H PRN PRN 07/31/20 [History] Lisinopril 20 mg [Zestril 20 MG] 40 mg PO DAILY 07/31/20 [History] Sitagliptin Phosphate 50 MG [Januvia 50 MG] 100 mg PO DAILY 07/31/20 [History] glipiZIDE [Glipizide] 2 mg PO DAILY 07/31/20 [History] Hx Tetanus, Diphtheria Vaccination/Date Given: Yes Hx Influenza Vaccination/Date Given: No Hx Pneumococcal Vaccination/Date Given: No Travel Risk - International Travel Have you traveled outside of the country in past 3 weeks: No - Coronavirus Screening Are you exhibiting any of the following symptoms?: Yes Symptoms: Shortness of Breath Close contact with a COVID-19 positive Pt in past 14-21 Days: No - Vaccine Status Have you recieved a Covid-19 vaccination: No - Review of Systems Constitutional: No Symptoms Eyes: No Symptoms Ears, Nose, & Throat: No Symptoms Respiratory: Dyspnea, No Cough, No Wheezing Cardiac: No Symptoms, No Chest Pain Abdominal/Gastrointestinal: No Symptoms Genitourinary Symptoms: No Symptoms Musculoskeletal: No Symptoms Skin: No Symptoms Neurological: No Symptoms Psychological: No Symptoms Endocrine: No Symptoms Hematologic/Lymphatic: No Symptoms Immunological/Allergic: No Symptoms All Other Systems: Reviewed and Negative - Past Medical History Pertinent Past Medical History: Yes Neurological History: No Pertinent History ENT History: No Pertinent History Cardiac History: High Cholesterol, Hypertension Respiratory History: Asthma Endocrine Medical History: Diabetes Type II, Other Musculoskeletal History: Fractures GI Medical History: No Pertinent History History: Renal Disease Psycho-Social History: No Pertinent History Other Medical History: HX FX RIGHT TIBIA WITH ORIF >10 YEARS AGO. HX OF OPEN WOUND LOWER ABDOMEN REQUIRING P.T. 12/2018 - 03/2021. OPEN WOUND/ABSCESS DUE TO INGROWN HAIR. - Past Surgical History Past Surgical History: Yes Neuro Surgical History: No Pertinent History Cardiac: No Pertinent History Respiratory: No Pertinent History Gastrointestinal: Appendectomy Genitourinary: No Pertinent History Musculoskeletal: No Pertinent History Male Surgical History: No Pertinent History Other Surgical History: left ARM SURG, right KNEE SURG - Social History Smoking Status: Never smoker Exposure to second hand smoke: No Drug Use: none Patient Lives Alone: No - Nursing Vital Signs Nursing Vital Signs: Initial Vital Signs Temperature 97.6 F 04/04/22 04:59 Pulse Rate 103 H 04/04/22 04:59 Respiratory Rate 22 04/04/22 04:59 Blood Pressure 109/59 04/04/22 04:59 O2 Sat by Pulse Oximetry 96 04/04/22 04:59 Pain Scale Pain Intensity 0 - Physical Exam General Appearance: no apparent distress, alert, anxiety, obese Eye Exam: PERRL/EOMI, eyes nml inspection Ears, Nose, Throat Exam: normal ENT inspection, moist mucous membranes Neck Exam: normal inspection, non-tender, supple, full range of motion Respiratory Exam: normal breath sounds, lungs clear, airway intact, No chest tenderness, No respiratory distress Cardiovascular Exam: regular rate/rhythm, normal heart sounds, normal peripheral pulses Gastrointestinal/Abdomen Exam: soft, normal bowel sounds, No tenderness Rectal Exam: not done Back Exam: normal inspection, normal range of motion, No CVA tenderness, No vertebral tenderness Extremity Exam: normal inspection, normal range of motion, pelvis stable Neurologic Exam: alert, oriented x 3, cooperative, unarmed security officer II-XII nml as tested, normal mood/affect, nml cerebellar function, nml station & gait, sensation nml Skin Exam: normal color, warm, dry Lymphatic Exam: No adenopathy SpO2 Interpretation: normal SpO2: 96 O2 Delivery: Room Air - Course Nursing assessment & vital signs reviewed: Yes Ordered Tests: Active Orders 24 hr Category Date Time Status CHEST 1 VIEW (PORTABLE) Stat Exams 04/04/22 05:31 Taken Respiratory Therapy Assessment DAILY RT 04/04/22 06:07 Active Medication Summary Discontinued Medications Generic Name Dose Route Start Last Admin Trade Name Freq PRN Reason Stop Dose Admin Albuterol Sulfate Confirm 04/04/22 06:04 Albuterol Sulfate 2.5 Mg/3 Ml Neb Administered 04/04/22 06:05 Dose 2.5 mg IH .STK-MED ONE Albuterol Sulfate 2.5 mg 04/04/22 06:07 04/04/22 06:07 Albuterol Sulfate 2.5 Mg/3 Ml Neb IH 04/04/22 06:08 2.5 mg STAT ONE Administration Methylprednisolone Sodium 0 mg 04/04/22 06:37 04/04/22 06:48 Succinate 125 mg/ Sterile IM 04/04/22 06:38 125 mg Water 2 ml STAT ONE Administration Methylprednisolone Sodium Succinate Confirm 04/04/22 06:45 Methylprednis Sod Succ 125 Mg/2 Ml Vial Administered 04/04/22 06:46 Dose 125 mg .ROUTE .STK-MED ONE Sterile Water Confirm 04/04/22 06:44 Water For Injection,Sterile 10 Ml Vial Administered 04/04/22 06:45 Dose 10 ml IJ .STK-MED ONE Lab/Rad Data: Laboratory Results 04/04/22 Range/Units 05:49 Influenza Type A Ag NEGATIVE (NEGATIVE) Influenza Type B Ag NEGATIVE (NEGATIVE) RSV (PCR) NEGATIVE (Negative) SARS-CoV-2 (PCR) NEGATIVE (NEGATIVE) - Progress Progress: improved, re-examined Air Movement: good (No wheezing) Progress Note: 04/04/22 06:37 Chest x-ray was interpreted by me. There are no acute cardiopulmonary processes present 04/04/22 07:20 Medical decision making: pts medical issue today is of low complexity. based upon pt hx, physical findings i ordered cxr, flu studies and provided pt with neb tx and solumedrol injection. pts response positive. based on above, discharge plan formulated with dx of acute asthma exacerbation. pt is to continue neb tx, take steroids as prescribed and monitor your blood sugar closely. f/u with pcp Blood Culture(s) Obtained: No Antibiotics given: No Counseled pt/family regarding: lab results, diagnosis, need for follow-up, rad results - Departure Departure Disposition: Home Clinical Impression: Asthma exacerbation Condition: Stable Critical Care Time: No Referrals: ALIA HERNANDEZ MD [Primary Care Provider] - Follow up/PCP as directed Prescriptions: Prednisone 10 mg [Deltasone 10 mg] 10 mg PO TID #12 tablet
[2022-04-04] MEDS ORDERED: PROVENTIL 2.5 MG/3 ML NEB IH ONE ×2 (06:04→06:07)
[2022-04-04 06:34] LABS: INFLUENZA A NEGATIVE (NEGATIVE); INFLUENZA B NEGATIVE (NEGATIVE); RESPIRATORY SYNCTIAL VIRUS NEGATIVE (Negative); SARS-CoV-2 Xpert Express NEGATIVE (NEGATIVE)
[2022-04-04] MEDS ORDERED: solu-MEDROL 125 MG, Sterile H2O 10 ml 2 ML IM ONE ×2 (06:37)
[2022-04-04] MEDS ORDERED: Sterile H2O 10 ml IJ ONE (06:44)
[2022-04-04] MEDS ORDERED: solu-MEDROL ONE (06:45)
[2022-04-04 07:31] VITALS: BP 93/65; PULSE 71; O2SAT 94
--- NOTE | 2022-04-04 09:06 | XRAY ---
Indication: Short of breath. Comparison: June 25, 2021 Portable chest demonstrates clearing right upper lobe airspace disease with now minimal fibrosis/scarring. Remaining heart and lungs unremarkable. Bony thorax intact. No acute findings.
== END 2022-04-04 07:37 | disposition home or self-care (01) ==
LOC: ED 04:54
DX: J45.901 Unspecified asthma with (acute) exacerbation (principal); R06.02 Shortness of breath; I10 Essential (primary) hypertension; E78.5 Hyperlipidemia, unspecified; E11.9 Type 2 diabetes mellitus without complications; Z79.84 Long term (current) use of oral hypoglycemic drugs; Z79.899 Other long term (current) drug therapy; Z79.52 Long term (current) use of systemic steroids; Z28.310 Unvaccinated for COVID-19
CPT/HCPCS: 0241U; 71045; 94640; 96372; 99283; J2930; J7609; A9270-GY

== ENCOUNTER 2022-05-25 04:26 | Observation (INO) | payer BC ==
[2022-05-25] MEDS ORDERED: DUONEB 0.5-3 MG/3 ml Neb IH ONE ×4 (04:29→05:51)
--- NOTE | 2022-05-25 04:54 | ERPHSYRPT ---
- History of Present Illness Time Seen by Provider: 05/25/22 04:53 Source: patient Exam Limitations: no limitations Patient Subjective Stated Complaint: SOB Triage Nursing Assessment: pt to ED c/o SOB that started yesterday evening, and progressively worsened through the night. pt denies pain at this time. audible wheezes noted. pt reports hx asthma and use of albuterol IH at home around 0400 with no relief. pt denies pain at this time. heart sounds clear, lungs wheezing throughout bilaterally Physician History: Pt w/ asthma presents with SOB and wheezing for the past day Not responding to inhalers [employer], using Albuterol multiple times over the past week Doesn't take QD inhaler Never been hospitalized for asthma No fevers or chills. + URI symptoms over the weekend No sick contacts. Timing/Duration: yesterday Activities at Onset: rest Severity of Dyspnea-Max: severe Severity of Dyspnea-Current: severe Possible Cause: occasional episodes Modifying Factors: Improves With: albuterol inhaler, albuterol nebulizer. Worsens With: coughing, deep breath, exertion Associated Symptoms: constant, cough, wheezing, No chest pain/discomfort, No edema, No fever, No calf pain, No productive cough Allergies/Adverse Reactions: No Known Drug Allergies Allergy (Verified 04/04/22 05:27) Home Medications: Metformin HCl [Glucophage] 1,000 mg PO BID 02/14/20 [History] Metoprolol Succinate 50 mg [Toprol Xl 50 MG] 1 tab PO DAILY 02/14/20 [History] Simvastatin 20Mg [Zocor 20Mg] 1 tab PO DAILY 02/14/20 [History] Albuterol Sulfate [Albuterol Sulfate Hfa] 8.5 gm IH Q4H PRN PRN 07/31/20 [History] Lisinopril 20 mg [Zestril 20 MG] 40 mg PO DAILY 07/31/20 [History] Sitagliptin Phosphate 50 MG [Januvia 50 MG] 100 mg PO DAILY 07/31/20 [History] glipiZIDE [Glipizide] 2 mg PO DAILY 07/31/20 [History] Hx Tetanus, Diphtheria Vaccination/Date Given: Yes Hx Influenza Vaccination/Date Given: Yes Hx Pneumococcal Vaccination/Date Given: No Immunizations Up to Date: Yes Travel Risk - International Travel Have you traveled outside of the country in past 3 weeks: No - Coronavirus Screening Are you exhibiting any of the following symptoms?: Yes Symptoms: Shortness of Breath Close contact with a COVID-19 positive Pt in past 14-21 Days: No - Vaccine Status Have you recieved a Covid-19 vaccination: No - Review of Systems Constitutional: No Symptoms Eyes: No Symptoms Ears, Nose, & Throat: No Symptoms Respiratory: Dyspnea, Dyspnea on Exertion (WILSON), Wheezing Cardiac: No Symptoms Abdominal/Gastrointestinal: No Symptoms Genitourinary Symptoms: No Symptoms Musculoskeletal: No Symptoms Skin: No Symptoms Neurological: No Symptoms Psychological: No Symptoms Endocrine: No Symptoms Hematologic/Lymphatic: No Symptoms Immunological/Allergic: No Symptoms All Other Systems: Reviewed and Negative - Past Medical History Pertinent Past Medical History: Yes Neurological History: No Pertinent History ENT History: No Pertinent History Cardiac History: High Cholesterol, Hypertension Respiratory History: Asthma Endocrine Medical History: Diabetes Type II, Other Musculoskeletal History: Fractures GI Medical History: No Pertinent History History: Renal Disease Psycho-Social History: No Pertinent History Male Reproductive Disorders: No Pertinent History Other Medical History: HX FX RIGHT TIBIA WITH ORIF >10 YEARS AGO. HX OF OPEN WOUND LOWER ABDOMEN REQUIRING P.T. 12/2018 - 03/2021. OPEN WOUND/ABSCESS DUE TO INGROWN HAIR. - Past Surgical History Past Surgical History: Yes Neuro Surgical History: No Pertinent History Cardiac: No Pertinent History Respiratory: No Pertinent History Gastrointestinal: Appendectomy Genitourinary: No Pertinent History Musculoskeletal: No Pertinent History Male Surgical History: No Pertinent History Other Surgical History: left ARM SURG, right KNEE SURG - Social History Smoking Status: Never smoker Exposure to second hand smoke: No Drug Use: none Patient Lives Alone: No - Nursing Vital Signs Nursing Vital Signs: Initial Vital Signs Temperature 96.6 F 05/25/22 04:36 Pulse Rate 73 05/25/22 04:36 Respiratory Rate 28 H 05/25/22 04:36 Blood Pressure 123/68 05/25/22 04:36 O2 Sat by Pulse Oximetry 96 05/25/22 04:36 Pain Scale Pain Intensity 0 - Physical Exam General Appearance: mild distress, obese Eye Exam: eyes nml inspection Ears, Nose, Throat Exam: normal ENT inspection Neck Exam: normal inspection Respiratory Exam: lungs clear, respiratory distress, airway intact, wheezing Cardiovascular/Chest Exam: normal heart sounds, regular rate/rhythm Abdominal/Gastrointestinal Exam: soft, normal bowel sounds, No tenderness Extremity Exam: non-tender, normal range of motion, normal inspection, normal capillary refill, no calf tenderness, no pedal edema Neurologic Exam: alert, oriented x 3, cooperative Skin Exam: normal color, warm, dry SpO2 Interpretation: normal SpO2: 96 O2 Delivery: Room Air - Course Nursing assessment & vital signs reviewed: Yes EKG Interpreted by Me: RATE (77), Sinus Rhythm, NORMAL AXIS, NORMAL INTERVALS, NORMAL ST-T (T waves have increased amplitude 2-3mm globally) - Radiology Exams Chest X-ray Interpretation: Interpreted by me, Pneumonia (multifocal) Ordered Tests: Active Orders 24 hr Category Date Time Status Pharmacoepidemiologist STAT Care 05/25/22 05:05 Active EKG-ER Only STAT Care 05/25/22 05:02 Active IV Insertion STAT Care 05/25/22 05:02 Active Pulse Oximetry (ED) STAT Care 05/25/22 05:02 Active CHEST 1 VIEW (PORTABLE) Stat Exams 05/25/22 05:05 Taken CBC W DIFF Stat Lab 05/25/22 05:41 Completed CMP Stat Lab 05/25/22 05:41 Completed D-DIMER QUANTITATIVE Stat Lab 05/25/22 05:41 Completed Lactic Acid Stat Lab 05/25/22 05:41 Completed MAGNESIUM Stat Lab 05/25/22 05:41 Completed TROPONIN Q4H Lab 05/25/22 05:41 Completed TROPONIN Q4H Lab 05/25/22 09:15 Ordered TROPONIN Q4H Lab 05/25/22 13:15 Ordered VENOUS BLOOD GAS Stat Lab 05/25/22 05:41 Completed Respiratory Therapy Assessment DAILY RT 05/25/22 04:58 Active Medication Summary Generic Name Dose Route Start Last Admin Trade Name Freq PRN Reason Stop Dose Admin Azithromycin 500 mg in 250 mls @ 250 mls/hr 05/25/22 10:00 05/25/22 06:19 Zithromax 500 Mg/ 250 Ml Nacl Premix IV 06/24/22 09:59 250 mls/hr Q24H10 KATIA 250 mls/hr Administration Discontinued Medications Generic Name Dose Route Start Last Admin Trade Name Freq PRN Reason Stop Dose Admin Albuterol/Ipratropium Confirm 05/25/22 04:29 Ipratropium/Albuterol Sulfate 3 Ml Ampul.Neb Administered 05/25/22 04:30 Dose 3 ml IH .STK-MED ONE Albuterol/Ipratropium 3 ml 05/25/22 04:57 05/25/22 04:40 Ipratropium/Albuterol Sulfate 3 Ml Ampul.Neb IH 05/25/22 04:58 3 ml STAT ONE Administration Albuterol/Ipratropium 3 ml 05/25/22 05:33 05/25/22 05:56 Ipratropium/Albuterol Sulfate 3 Ml Ampul.Neb IH 05/25/22 05:34 3 ml STAT ONE Administration Albuterol/Ipratropium Confirm 05/25/22 05:51 Ipratropium/Albuterol Sulfate 3 Ml Ampul.Neb Administered 05/25/22 05:52 Dose 3 ml IH .STK-MED ONE Methylprednisolone Sodium 0 mg 05/25/22 05:02 05/25/22 05:21 Succinate 125 mg/ Sterile IV 05/25/22 05:03 125 mg Water 2 ml STAT ONE Administration Furosemide 40 mg 05/25/22 06:14 05/25/22 06:19 Furosemide 40 Mg/4 Ml Vial IV 05/25/22 06:15 40 mg STAT ONE Administration Furosemide Confirm 05/25/22 06:18 Furosemide 40 Mg/4 Ml Vial Administered 05/25/22 06:19 Dose 40 mg .ROUTE .STK-MED ONE Sodium Chloride 1,000 mls @ 999 mls/hr 05/25/22 05:02 05/25/22 06:26 Sodium Chloride 0.9% 1000 Ml IV 05/25/22 06:02 Infused .Q1H1M STA Infusion Sodium Chloride Confirm 05/25/22 05:19 Sodium Chloride 0.9% 1000 Ml Administered 05/25/22 05:20 Dose 1,000 mls @ ud .ROUTE .STK-MED ONE Ceftriaxone Sodium/Dextrose 2 g in 50 mls @ 100 mls/hr 05/25/22 05:36 05/25/22 06:26 Rocephin 2 Gm-D5w 50ml Bag IV 05/25/22 06:05 Infused STAT STA Infusion Ceftriaxone Sodium/Dextrose Confirm 05/25/22 05:47 Rocephin 2 Gm-D5w 50ml Bag Administered 05/25/22 05:48 Dose 2 g in 50 mls @ ud IV .STK-MED ONE Methylprednisolone Sodium Succinate Confirm 05/25/22 05:19 Methylprednis Sod Succ 125 Mg/2 Ml Vial Administered 05/25/22 05:20 Dose 125 mg .ROUTE .STK-MED ONE Sterile Water Confirm 05/25/22 05:19 Water For Injection,Sterile 10 Ml Vial Administered 05/25/22 05:20 Dose 10 ml IJ .STK-MED ONE Lab/Rad Data: Laboratory Result Diagrams 05/25/22 05:41 05/25/22 05:41 Laboratory Results 05/25/22 05/25/22 05/25/22 Range/Units 05:41 05:41 05:41 WBC (4.0-10.5) x10^3/uL RBC (4.1-5.6) x10^6/uL Hgb (12.5-18.0) g/dL Hct (42-50) % MCV (78-100) fL MCH (26-32) pg MCHC (32-36) g/dL RDW (11.5-14.0) % Plt Count (150-450) x10^3/uL MPV (7.5-11.0) fL Gran % (36.0-66.0) % Immature Gran % (Auto) (0.00-0.4) % Nucleat RBC Rel Count (0.00-0.1) % Eos # (Auto) (0-0.5) x10^3/uL Immature Gran # (Auto) (0.00-0.03) x10^3u/L Absolute Lymphs (auto) (1.0-4.6) x10^3/uL Absolute Monos (auto) (0.0-1.3) x10^3/uL Absolute Nucleated RBC (0.00-0.01) x10^3u/L Lymphocytes % (24.0-44.0) % Monocytes % (0.0-12.0) % Eosinophils % (0.00-5.0) % Basophils % (0.0-0.4) % Absolute Granulocytes (1.4-6.9) x10^3/uL Basophils # (0-0.4) x10^3/uL D-Dimer 0.33 (0.0-0.50) mg/L pO2/FiO2 Ratio 21.0 % VBG pH 7.35 (7.32-7.42) VBG pCO2 at Pat Temp 43 (42-55) mm/Hg VBG pO2 at Pat Temp 46 H (25-40) mm/Hg VBG HCO3 23.7 (22-28) meq/L VBG O2 Sat (Ryan) 79.1 L (95-100) VBG Base Excess -2.0 (-2.0-2.0) VBG Hemoglobin 14.6 VBG Carboxyhemoglobin 2.5 (0.0-6.9) % T HGB POC Potassium 5.3 H (3.5-5.1) Sodium (137-145) mmol/L Potassium (3.5-5.1) mmol/L Chloride (98-107) mmol/L Carbon Dioxide (22-30) mmol/L Anion Gap (5-15) MEQ/L BUN (9-20) mg/dL Creatinine (0.66-1.25) mg/dL Estimated GFR ML/MIN Glucose (74-106) mg/dL Lactic Acid (0.4-2.0) Calcium (8.4-10.2) mg/dL Magnesium (1.6-2.3) mg/dL Total Bilirubin (0.2-1.3) mg/dL AST (17-59) U/L ALT (0-50) U/L Alkaline Phosphatase (38-126) U/L Troponin I < 0.012 (0.000-0.034) ng/mL Serum Total Protein (6.3-8.2) g/dL Albumin (3.5-5.0) g/dL 05/25/22 05/25/22 05/25/22 Range/Units 05:41 05:41 05:41 WBC 6.8 (4.0-10.5) x10^3/uL RBC 5.60 (4.1-5.6) x10^6/uL Hgb 14.2 (12.5-18.0) g/dL Hct 48.5 (42-50) % MCV 86.6 (78-100) fL MCH 25.4 L (26-32) pg MCHC 29.3 L (32-36) g/dL RDW 16.8 H (11.5-14.0) % Plt Count 210 (150-450) x10^3/uL MPV 9.9 (7.5-11.0) fL Gran % 56.8 (36.0-66.0) % Immature Gran % (Auto) 0.4 (0.00-0.4) % Nucleat RBC Rel Count 0.0 (0.00-0.1) % Eos # (Auto) 0.45 (0-0.5) x10^3/uL Immature Gran # (Auto) 0.03 (0.00-0.03) x10^3u/L Absolute Lymphs (auto) 1.71 (1.0-4.6) x10^3/uL Absolute Monos (auto) 0.64 (0.0-1.3) x10^3/uL Absolute Nucleated RBC 0.00 (0.00-0.01) x10^3u/L Lymphocytes % 25.3 (24.0-44.0) % Monocytes % 9.5 (0.0-12.0) % Eosinophils % 6.7 H (0.00-5.0) % Basophils % 1.3 (0.0-0.4) % Absolute Granulocytes 3.83 (1.4-6.9) x10^3/uL Basophils # 0.09 (0-0.4) x10^3/uL D-Dimer (0.0-0.50) mg/L pO2/FiO2 Ratio % VBG pH (7.32-7.42) VBG pCO2 at Pat Temp (42-55) mm/Hg VBG pO2 at Pat Temp (25-40) mm/Hg VBG HCO3 (22-28) meq/L VBG O2 Sat (Ryan) (95-100) VBG Base Excess (-2.0-2.0) VBG Hemoglobin VBG Carboxyhemoglobin (0.0-6.9) % T HGB POC Potassium (3.5-5.1) Sodium 139 (137-145) mmol/L Potassium 5.4 H (3.5-5.1) mmol/L Chloride 106 (98-107) mmol/L Carbon Dioxide 24 (22-30) mmol/L Anion Gap 14.3 (5-15) MEQ/L BUN 34 H (9-20) mg/dL Creatinine 2.29 H (0.66-1.25) mg/dL Estimated GFR 34.3 ML/MIN Glucose 104 (74-106) mg/dL Lactic Acid 1.4 (0.4-2.0) Calcium 8.8 (8.4-10.2) mg/dL Magnesium 2.1 (1.6-2.3) mg/dL Total Bilirubin 0.50 (0.2-1.3) mg/dL AST 22 (17-59) U/L ALT 29 (0-50) U/L Alkaline Phosphatase 83 (38-126) U/L Troponin I (0.000-0.034) ng/mL Serum Total Protein 6.9 (6.3-8.2) g/dL Albumin 3.9 (3.5-5.0) g/dL - Progress Progress: improved Air Movement: good Progress Note: 05/25/22 06:21 Patient improving w/ nebs and steroids, but still wheezing. No longer in respi ratory distress. CXR revealed multifocal PNA so Rocephin and Azithromycin was initiated. His renal function was slightly worse than his baseline, but didn't meet criteria for SAADIA. K was elevated at 5.4 after several Albuterol treatments and EKG does show T waves w/ an amplitude of 2-3mm globally, patient denies active sxs. 40mg IV was given to help lower K. His lactate came back at 1.4, d- dimer 0.33, troponin neg and no elevation in his WBC count at this time. Due to his current condition and multiple comorbidities I will discuss admission w/ the telehospitalist. 05/25/22 06:30 Discussed case w/ Dr. Brown who accepts patient for observation. Blood Culture(s) Obtained: No Antibiotics given: Yes Discussed with Dr.: Other (Dr. Brown) Counseled pt/family regarding: lab results, diagnosis, need for follow-up, rad results Medical Desision Making - Discussion of managment Care discussed with:: hospitalist Reviewed:: Test results Agreed on:: Treatment plan, need for follow-up, place in obs Will see patient: in hospital - Diagnostic Testing Diagnostic test were ordered, analyzed, and reviewed by me: Yes Radiological Interpretation: Interpreted by me, Reviewed by me - Risk of complications The pt has a mod risk of morbidity or mortality based on: Need for prescription drug management The pt has a high risk of morbidity or mortality based on: Decision regarding hospitilization or escalation of hosp level of care - Departure Departure Disposition: Observation Clinical Impression: Asthma with acute exacerbation, Pneumonia, HTN (hypertension), DM2 (diabetes mellitus, type 2) Condition: Stable Critical Care Time: No Referrals: ALIA HERNANDEZ MD [Primary Care Provider] - Follow up/PCP as directed Instructions: Asthma, Adult (DC), Pneumonia, Adult (DC)
[2022-05-25] MEDS ORDERED: Sodium Chloride 0.9% 1000 ML 1,000 ML IV STA (05:02)
[2022-05-25] MEDS ORDERED: solu-MEDROL 125 MG, Sterile H2O 10 ml 2 ML IV ONE ×2 (05:02)
[2022-05-25] MEDS ORDERED: solu-MEDROL ONE (05:19)
[2022-05-25] MEDS ORDERED: Sterile H2O 10 ml IJ ONE (05:19)
[2022-05-25] MEDS ORDERED: Sodium Chloride 0.9% 1000 ML 1,000 ML ONE (05:19)
[2022-05-25] MEDS ORDERED: ROCEPHIN 2 Gm-D5w 50ML BAG** 2 G/50 ML IVPB IV STA (05:36)
[2022-05-25 05:43] LABS: Absolute Neutrophil Ct (ANC) 3.83 x10^3/uL (1.4-6.9); BASOPHIL % 1.3 % (0.0-0.4); Basophil (Absolute #) 0.09 x10^3/uL (0-0.4); Eosinophil % 6.7 % (0.00-5.0); Eosinophil (Absolute #) 0.45 x10^3/uL (0-0.5); Hematocrit 48.5 % (42-50); Hemoglobin 14.2 g/dL (12.5-18.0); IMMATURE GRAN # 0.03 x10^3u/L (0.00-0.03); IMMATURE GRAN % 0.4 % (0.00-0.4); Lymphocyte (Absolute #) 1.71 x10^3/uL (1.0-4.6); Lymphocytes % 25.3 % (24.0-44.0); Mean Cell Volume 86.6 fL (78-100); Mean Corpuscular Hemoglobin 25.4 pg (26-32); Mean Corpuscular Hgb Concent. 29.3 g/dL (32-36); Mean Platelet Volume 9.9 fL (7.5-11.0); Monocyte (Absolute #) 0.64 x10^3/uL (0.0-1.3); Monocytes % 9.5 % (0.0-12.0); Neutrophil % 56.8 % (36.0-66.0); Platelet Count 210 x10^3/uL (150-450); Red Cell Distribution Width 16.8 % (11.5-14.0); White Blood Count 6.8 x10^3/uL (4.0-10.5)
[2022-05-25] MEDS ORDERED: ROCEPHIN 2 Gm-D5w 50ML BAG** 2 G/50 ML IVPB IV ONE (05:47)
[2022-05-25 05:49] LABS: VBG CARBOXYHEMOGLOBIN 2.5 % T HGB (0.0-6.9); VBG HCO3- 23.7 meq/L (22-28); VBG HEMOGLOBIN 14.6; VBG O2 SATURATION 79.1 (95-100); VBG POTASSIUM 5.3 (3.5-5.1); VBG pH 7.35 (7.32-7.42)
[2022-05-25 05:57] LABS: ALBUMIN 3.9 g/dL (3.5-5.0); ANION GAP 14.3 MEQ/L (5-15); BILIRUBIN,TOTAL 0.5 mg/dL (0.2-1.3); Calcium 8.8 mg/dL (8.4-10.2); Creatinine 1 2.29 mg/dL (0.66-1.25); EST GLOMERULAR FILTRATION RATE 34.3 ML/MIN; MAGNESIUM 2.1 mg/dL (1.6-2.3); Potassium 5.4 mmol/L (3.5-5.1); Total Protein 6.9 g/dL (6.3-8.2)
[2022-05-25] MEDS ORDERED: Lasix 40 MG/4 ML IV ONE (06:14)
[2022-05-25] MEDS ORDERED: Lasix 40 MG/4 ML ONE (06:18)
[2022-05-25 06:21] LABS: INFLUENZA A NEGATIVE (NEGATIVE); INFLUENZA B NEGATIVE (NEGATIVE); RESPIRATORY SYNCTIAL VIRUS NEGATIVE (NEGATIVE); SARS-CoV-2 Xpert Express NEGATIVE (NEGATIVE)
--- NOTE | 2022-05-25 08:42 | XRAY ---
Indication: Short of breath. Comparison: April 04, 2022 Portable chest now rotated with grossly stable right upper lung fibrosis/scarring. No focal infiltrate, consolidation, or large effusion. Heart within normal limits for AP portable technique. No new/acute findings.
[2022-05-25] MEDS ORDERED: PROVENTIL 2.5 MG/3 ML NEB IH PRN (09:06)
[2022-05-25] MEDS ORDERED: VENTOLIN COMMON CANISTER IH PRN ×2 (09:06→10:15)
[2022-05-25] MEDS ORDERED: MEDICATION INTERVENTION MC SCH (09:30)
[2022-05-25] MEDS ORDERED: Spiriva 18 Mcg/Cap Inhaler IH SCH (10:00)
[2022-05-25] MEDS ORDERED: NON-FORMULARY ITEM (Dapagliflozin Propanediol [Farxiga] 10 MG Tablet) PO SCH (10:00)
[2022-05-25] MEDS ORDERED: NON-FORMULARY ITEM (Sodium Bicarbonate 650 MG Tablet) PO SCH (10:00)
[2022-05-25] MEDS ORDERED: Zithromax 500 MG/ 250 ML NaCl Premix 500 MG/250 ML IVPB IV SCH (10:00)
[2022-05-25] MEDS: Pepcid 20 MG PO SCH ×2 (10:34→20:16)
[2022-05-25] MEDS: ENOXAPARIN SODIUM SQ SCH (10:35)
[2022-05-25] MEDS: DUONEB 0.5-3 MG/3 ml Neb IH SCH ×4 (10:44→19:06)
[2022-05-25] MEDS: HUMALOG SQ PRN ×3 (11:26→20:44)
[2022-05-25] MEDS: solu-MEDROL 60 MG, Sterile H2O 10 ml 2 ML IV SCH ×6 (11:27→23:17)
--- NOTE | 2022-05-25 12:14 | PCM.HP ---
History of Present Illness - Chief Complaint Chief Complaint: SOB, Pneumonia History of Present Illness: Mr.ROBERTSON BAIG is a 37 year old male pt of Dr. Quesada with morbid obesity, asthma, and chronic renal insufficiency admitted through ER with multifocal pneumonia and acute on chronic renal disease. His CXR was read as multifocal pna in ER and he was given rocephin and zithromax, along with IV steroids and nebulizer tx. The overread of xr this morning is nonacute. Pt is not on O2. WBC were 6.8 initially. eGFR 34.3. D-dimer 0.33, nl. Trop neg x 2. He would like to go home. He has been having wheezing for one week with SOB, no fever. Last night had increased wheeze, inhaler helped a while, then at 4 am he tried inhaler again and it was not helping and he came to the ER. - Review of Systems Ears, Nose, & Throat: Nose Discharge Respiratory: Short Of Breath, Wheezing All Other Systems: Reviewed and Negative Medications & Allergies Home Medications: Home Medication List Metformin HCl [Glucophage] 1,000 mg PO BID 02/14/20 [History Confirmed 05/25/22] Metoprolol Succinate 50 mg [Toprol Xl 50 MG] 1 tab PO DAILY 02/14/20 [History Confirmed 05/25/22] Simvastatin 20Mg [Zocor 20Mg] 1 tab PO DAILY 02/14/20 [History Confirmed 05/25/22] Albuterol Sulfate [Albuterol Sulfate Hfa] 8.5 gm IH Q4H PRN PRN 07/31/20 [History Confirmed 05/25/22] Lisinopril 20 mg [Zestril 20 MG] 40 mg PO DAILY 07/31/20 [History Confirmed 05/25/22] Sitagliptin Phosphate 50 MG [Januvia 50 MG] 100 mg PO DAILY 07/31/20 [History Confirmed 05/25/22] glipiZIDE [Glipizide] 2 mg PO DAILY 07/31/20 [History Confirmed 05/25/22] Hydrochlorothiazide 25 mg [hydroDIURIL 25 MG] 25 mg PO DAILY #30 tablet 08/01/20 [Rx Confirmed 05/25/22] Albuterol 2.5 mg/3 ml Neb [Proventil 2.5 mg/3 ml Neb] 2.5 mg IH Q4H PRN PRN 30 Days #180 06/15/21 [Rx Confirmed 05/25/22] Dapagliflozin Propanediol [Farxiga] 10 mg PO DAILY 05/25/22 [History Confirmed 05/25/22] Sodium Bicarbonate 650 mg PO DAILY 05/25/22 [History Confirmed 05/25/22] Allergies/Adverse Reactions: Allergies Allergy/AdvReac Type Severity Reaction Status Date / Time No Known Drug Allergies Allergy Verified 04/04/22 05:27 - Past Medical History Past Medical History: Yes Neurological History: No Pertinent History ENT History: No Pertinent History Cardiac History: High Cholesterol, Hypertension Respiratory History: Asthma Endocrine Medical History: Diabetes Type II, Other Musculoskelatal History: Fractures GI Medical History: No Pertinent History History: Renal Disease Pyscho-Social History: No Pertinent History Male Reproductive Disorders: No Pertinent History Comment: Hx fx of right tibia with orif over 10 years ago. Hx of open wound lower abdomen requiring P.T. 12/2018-03/2021. Opwn wound/abscess due to ingrown hair. - Past Surgical History Past Surgical History: Yes Neuro Surgical History: No Pertinent History Cardiac History: No Pertinent History Respiratory Surgery: No Pertinent History GI Surgical History: Appendectomy Genitourinary Surgical Hx: No Pertinent History Musculskeletal Surgical Hx: No Pertinent History Male Surgical History: No Pertinent History Other Surgical History: L arm surgery and R knee surgery. Two screws in R leg. - Social History Smoking Status: Former smoker Exposure to second hand smoke: No Alcohol: None Drug Use: none - Physical Exam Vital Signs: Vital Signs - 24 hr Temp Pulse Resp BP Pulse Ox 05/25/22 11:21 97.8 F 77 16 108/58 95 05/25/22 10:48 70 18 94 L 05/25/22 09:57 68 20 96 05/25/22 08:48 96.8 F 70 20 108/69 97 05/25/22 08:24 96.8 F 72 16 108/69 94 L 05/25/22 07:10 71 17 113/65 95 05/25/22 06:31 96 05/25/22 06:19 68 20 97 05/25/22 05:57 68 17 93 L 05/25/22 05:26 80 22 95 05/25/22 04:40 77 22 95 05/25/22 04:36 96.6 F 73 25 H 123/68 96 General Appearance: no apparent distress, alert, obese Neurologic Exam: oriented x 3, cooperative Eye Exam: eyes nml inspection Ears, Nose, Throat Exam: moist mucous membranes Neck Exam: normal inspection, non-tender, supple, No lymphadenopathy, No subcutaneous emphysema, No thyromegaly Respiratory Exam: diminished breath sounds (poor air exchange), wheezing (faint exp wheeze throughout), No crackles/rales, No rhonchi Cardiovascular Exam: regular rate/rhythm, normal heart sounds, No murmur Gastrointestinal/Abdomen Exam: soft, normal bowel sounds, No tenderness, No distention, No mass, No guarding, No rebound Back Exam: normal inspection, No CVA tenderness, No rash Extremity Exam: normal inspection, No pedal edema, No swelling Skin Exam: normal color, warm, dry, No rash Results - Labs Lab/Micro Results: Lab Results-Last 24 Hours 05/25/22 05/25/22 05/25/22 Range/Units 05:41 05:41 05:41 WBC 6.8 (4.0-10.5) x10^3/uL RBC 5.60 (4.1-5.6) x10^6/uL Hgb 14.2 (12.5-18.0) g/dL Hct 48.5 (42-50) % MCV 86.6 (78-100) fL MCH 25.4 L (26-32) pg MCHC 29.3 L (32-36) g/dL RDW 16.8 H (11.5-14.0) % Plt Count 210 (150-450) x10^3/uL MPV 9.9 (7.5-11.0) fL Gran % 56.8 (36.0-66.0) % Immature Gran % (Auto) 0.4 (0.00-0.4) % Nucleat RBC Rel Count 0.0 (0.00-0.1) % Eos # (Auto) 0.45 (0-0.5) x10^3/uL Immature Gran # (Auto) 0.03 (0.00-0.03) x10^3u/L Absolute Lymphs (auto) 1.71 (1.0-4.6) x10^3/uL Absolute Monos (auto) 0.64 (0.0-1.3) x10^3/uL Absolute Nucleated RBC 0.00 (0.00-0.01) x10^3u/L Lymphocytes % 25.3 (24.0-44.0) % Monocytes % 9.5 (0.0-12.0) % Eosinophils % 6.7 H (0.00-5.0) % Basophils % 1.3 (0.0-0.4) % Absolute Granulocytes 3.83 (1.4-6.9) x10^3/uL Basophils # 0.09 (0-0.4) x10^3/uL D-Dimer (0.0-0.50) mg/L pO2/FiO2 Ratio % VBG pH (7.32-7.42) VBG pCO2 at Pat Temp (42-55) mm/Hg VBG pO2 at Pat Temp (25-40) mm/Hg VBG HCO3 (22-28) meq/L VBG O2 Sat (Ryan) (95-100) VBG Base Excess (-2.0-2.0) VBG Hemoglobin VBG Carboxyhemoglobin (0.0-6.9) % T HGB POC Potassium (3.5-5.1) Sodium 139 (137-145) mmol/L Potassium 5.4 H (3.5-5.1) mmol/L Chloride 106 (98-107) mmol/L Carbon Dioxide 24 (22-30) mmol/L Anion Gap 14.3 (5-15) MEQ/L BUN 34 H (9-20) mg/dL Creatinine 2.29 H (0.66-1.25) mg/dL Estimated GFR 34.3 ML/MIN Glucose 104 (74-106) mg/dL POC Glucometer (74 to 106) mg/dL Lactic Acid 1.4 (0.4-2.0) Calcium 8.8 (8.4-10.2) mg/dL Magnesium 2.1 (1.6-2.3) mg/dL Total Bilirubin 0.50 (0.2-1.3) mg/dL AST 22 (17-59) U/L ALT 29 (0-50) U/L Alkaline Phosphatase 83 (38-126) U/L Troponin I (0.000-0.034) ng/mL Serum Total Protein 6.9 (6.3-8.2) g/dL Albumin 3.9 (3.5-5.0) g/dL Influenza Type A Ag (NEGATIVE) Influenza Type B Ag (NEGATIVE) RSV (PCR) (NEGATIVE) SARS-CoV-2 (PCR) (NEGATIVE) 05/25/22 05/25/22 05/25/22 Range/Units 05:41 05:41 05:41 WBC (4.0-10.5) x10^3/uL RBC (4.1-5.6) x10^6/uL Hgb (12.5-18.0) g/dL Hct (42-50) % MCV (78-100) fL MCH (26-32) pg MCHC (32-36) g/dL RDW (11.5-14.0) % Plt Count (150-450) x10^3/uL MPV (7.5-11.0) fL Gran % (36.0-66.0) % Immature Gran % (Auto) (0.00-0.4) % Nucleat RBC Rel Count (0.00-0.1) % Eos # (Auto) (0-0.5) x10^3/uL Immature Gran # (Auto) (0.00-0.03) x10^3u/L Absolute Lymphs (auto) (1.0-4.6) x10^3/uL Absolute Monos (auto) (0.0-1.3) x10^3/uL Absolute Nucleated RBC (0.00-0.01) x10^3u/L Lymphocytes % (24.0-44.0) % Monocytes % (0.0-12.0) % Eosinophils % (0.00-5.0) % Basophils % (0.0-0.4) % Absolute Granulocytes (1.4-6.9) x10^3/uL Basophils # (0-0.4) x10^3/uL D-Dimer 0.33 (0.0-0.50) mg/L pO2/FiO2 Ratio 21.0 % VBG pH 7.35 (7.32-7.42) VBG pCO2 at Pat Temp 43 (42-55) mm/Hg VBG pO2 at Pat Temp 46 H (25-40) mm/Hg VBG HCO3 23.7 (22-28) meq/L VBG O2 Sat (Ryan) 79.1 L (95-100) VBG Base Excess -2.0 (-2.0-2.0) VBG Hemoglobin 14.6 VBG Carboxyhemoglobin 2.5 (0.0-6.9) % T HGB POC Potassium 5.3 H (3.5-5.1) Sodium (137-145) mmol/L Potassium (3.5-5.1) mmol/L Chloride (98-107) mmol/L Carbon Dioxide (22-30) mmol/L Anion Gap (5-15) MEQ/L BUN (9-20) mg/dL Creatinine (0.66-1.25) mg/dL Estimated GFR ML/MIN Glucose (74-106) mg/dL POC Glucometer (74 to 106) mg/dL Lactic Acid (0.4-2.0) Calcium (8.4-10.2) mg/dL Magnesium (1.6-2.3) mg/dL Total Bilirubin (0.2-1.3) mg/dL AST (17-59) U/L ALT (0-50) U/L Alkaline Phosphatase (38-126) U/L Troponin I < 0.012 (0.000-0.034) ng/mL Serum Total Protein (6.3-8.2) g/dL Albumin (3.5-5.0) g/dL Influenza Type A Ag (NEGATIVE) Influenza Type B Ag (NEGATIVE) RSV (PCR) (NEGATIVE) SARS-CoV-2 (PCR) (NEGATIVE) 05/25/22 05/25/22 05/25/22 Range/Units 05:41 08:15 11:06 WBC (4.0-10.5) x10^3/uL RBC (4.1-5.6) x10^6/uL Hgb (12.5-18.0) g/dL Hct (42-50) % MCV (78-100) fL MCH (26-32) pg MCHC (32-36) g/dL RDW (11.5-14.0) % Plt Count (150-450) x10^3/uL MPV (7.5-11.0) fL Gran % (36.0-66.0) % Immature Gran % (Auto) (0.00-0.4) % Nucleat RBC Rel Count (0.00-0.1) % Eos # (Auto) (0-0.5) x10^3/uL Immature Gran # (Auto) (0.00-0.03) x10^3u/L Absolute Lymphs (auto) (1.0-4.6) x10^3/uL Absolute Monos (auto) (0.0-1.3) x10^3/uL Absolute Nucleated RBC (0.00-0.01) x10^3u/L Lymphocytes % (24.0-44.0) % Monocytes % (0.0-12.0) % Eosinophils % (0.00-5.0) % Basophils % (0.0-0.4) % Absolute Granulocytes (1.4-6.9) x10^3/uL Basophils # (0-0.4) x10^3/uL D-Dimer (0.0-0.50) mg/L pO2/FiO2 Ratio % VBG pH (7.32-7.42) VBG pCO2 at Pat Temp (42-55) mm/Hg VBG pO2 at Pat Temp (25-40) mm/Hg VBG HCO3 (22-28) meq/L VBG O2 Sat (Ryan) (95-100) VBG Base Excess (-2.0-2.0) VBG Hemoglobin VBG Carboxyhemoglobin (0.0-6.9) % T HGB POC Potassium (3.5-5.1) Sodium (137-145) mmol/L Potassium (3.5-5.1) mmol/L Chloride (98-107) mmol/L Carbon Dioxide (22-30) mmol/L Anion Gap (5-15) MEQ/L BUN (9-20) mg/dL Creatinine (0.66-1.25) mg/dL Estimated GFR ML/MIN Glucose (74-106) mg/dL POC Glucometer 160 H (74 to 106) mg/dL Lactic Acid (0.4-2.0) Calcium (8.4-10.2) mg/dL Magnesium (1.6-2.3) mg/dL Total Bilirubin (0.2-1.3) mg/dL AST (17-59) U/L ALT (0-50) U/L Alkaline Phosphatase (38-126) U/L Troponin I < 0.012 (0.000-0.034) ng/mL Serum Total Protein (6.3-8.2) g/dL Albumin (3.5-5.0) g/dL Influenza Type A Ag NEGATIVE (NEGATIVE) Influenza Type B Ag NEGATIVE (NEGATIVE) RSV (PCR) NEGATIVE (NEGATIVE) SARS-CoV-2 (PCR) NEGATIVE (NEGATIVE) - Radiology Impressions Radiology Exams & Impressions: Radiology Procedures Category Date Time Status CHEST 1 VIEW (PORTABLE) Stat Exams 05/25/22 05:05 Completed - Other Procedures and Tests Respiratory Therapy 05/25/22 04:58 Respiratory Therapy Assessment DAILY Assessment/Plan (1) Asthma with acute exacerbation Current Visit: Yes Status: Acute Qualifiers: Asthma severity: moderate Asthma persistence: persistent Qualified Code(s): J45.41 - Moderate persistent asthma with (acute) exacerbation Assessment & Plan: on IV steroid 60mg q6h. Will d/c to home on prednisone. (2) Pneumonia Current Visit: Yes Status: Acute Qualifiers: Pneumonia type: due to unspecified organism Laterality: unspecified laterality Lung location: unspecified part of lung Qualified Code(s): J18.9 - Pneumonia, unspecified organism Assessment & Plan: Will continue to treat as for multifocal pna. He is much improved since his admission (was at RR 28/min, now 16/min). He is not on O2. [facility] home tomorrow. Code(s): J18.9 - PNEUMONIA, UNSPECIFIED ORGANISM (3) Acute on chronic renal failure Current Visit: Yes Status: Acute Code(s): N17.9 - ACUTE KIDNEY FAILURE, UNSPECIFIED; N18.9 - CHRONIC KIDNEY DISEASE, UNSPECIFIED (4) DM2 (diabetes mellitus, type 2) Current Visit: Yes Status: Chronic Qualifiers: Diabetes mellitus detention insulin use: without long filler cigar roller machine use (5) HTN (hypertension) Current Visit: Yes Status: Chronic Qualifiers: Hypertension type: primary hypertension Qualified Code(s): I10 - Essential (primary) hypertension Code(s): I10 - ESSENTIAL (PRIMARY) HYPERTENSION
[2022-05-25] MEDS ORDERED: ZOCOR 20MG PO SCH (22:00)
[2022-05-26 04:27] LABS: Hematocrit 48.7 % (42-50); Mean Cell Volume 82.7 fL (78-100); Mean Corpuscular Hemoglobin 25.5 pg (26-32); Mean Corpuscular Hgb Concent. 30.8 g/dL (32-36); Mean Platelet Volume 10.2 fL (7.5-11.0); Platelet Count 262 x10^3/uL (150-450); Red Blood Count 5.89 x10^6/uL (4.1-5.6); Red Cell Distribution Width 17.9 % (11.5-14.0)
[2022-05-26 04:42] LABS: ANION GAP 17.4 MEQ/L (5-15); Calcium 8.9 mg/dL (8.4-10.2); Creatinine 1 2.38 mg/dL (0.66-1.25); EST GLOMERULAR FILTRATION RATE 32.9 ML/MIN; Potassium 5.4 mmol/L (3.5-5.1)
[2022-05-26] MEDS: solu-MEDROL 60 MG, Sterile H2O 10 ml 2 ML IV SCH ×4 (06:02→12:22)
[2022-05-26] MEDS: DUONEB 0.5-3 MG/3 ml Neb IH SCH ×2 (06:39→10:39)
[2022-05-26] MEDS ORDERED: SODIUM BICARBONATE PO SCH (10:00)
[2022-05-26] MEDS ORDERED: Toprol Xl 50 MG PO SCH (10:00)
[2022-05-26] MEDS ORDERED: Januvia 50 MG PO SCH (10:00)
[2022-05-26] MEDS ORDERED: Zestril 20 MG PO SCH (10:00)
[2022-05-26] MEDS ORDERED: hydroDIURIL 25 MG PO SCH (10:00)
[2022-05-26] MEDS ORDERED: Zithromax 500 MG/ 250 ML NaCl Premix 500 MG/250 ML IVPB IV SCH (10:00)
[2022-05-26] MEDS ORDERED: ROCEPHIN 1 Gm-D5w 50 ml Bag** 1 G/50 ML IVPB IV SCH (10:00)
[2022-05-26] MEDS: ENOXAPARIN SODIUM SQ SCH ×2 (10:45→10:53)
[2022-05-26] MEDS: Pepcid 20 MG PO SCH (10:45)
[2022-05-26] MEDS: HUMALOG SQ PRN (12:22)
--- NOTE | 2022-05-26 13:35 | PCM.NOTE ---
Date and Time: 05/26/22 3394 OBJECTIVE DATA Vital Signs: Vital Signs - 24 hr Temp Pulse Resp BP BP Pulse Ox 05/26/22 07:29 97.5 F 80 18 114/56 91 L 05/26/22 06:40 80 18 91 L 05/26/22 04:00 97.8 F 89 20 115/55 93 L 05/25/22 23:42 98.8 F 90 22 97/52 94 L 05/25/22 19:54 98.4 F 100 H 19 107/54 94 L 05/25/22 19:10 98 H 18 94 L 05/25/22 16:00 97.5 F 92 H 17 103/60 93 L 05/25/22 14:44 83 20 92 L Pain Assessment - Last Documented Pain Intensity 0 Intake and Output: Intake & Output 05/24/22 05/25/22 05/26/22 05/27/22 11:59 11:59 11:59 11:59 Intake Total 1240 1520 Balance 1240 1520 Weight 203 kg 202.3 kg Lab Results: Lab Results-Last 24 Hours 05/25/22 05/25/22 05/26/22 Range/Units 16:43 20:39 04:22 WBC 12.0 H (4.0-10.5) x10^3/uL RBC 5.89 H (4.1-5.6) x10^6/uL Hgb 15.0 (12.5-18.0) g/dL Hct 48.7 (42-50) % MCV 82.7 (78-100) fL MCH 25.5 L (26-32) pg MCHC 30.8 L (32-36) g/dL RDW 17.9 H (11.5-14.0) % Plt Count 262 (150-450) x10^3/uL MPV 10.2 (7.5-11.0) fL Sodium (137-145) mmol/L Potassium (3.5-5.1) mmol/L Chloride (98-107) mmol/L Carbon Dioxide (22-30) mmol/L Anion Gap (5-15) MEQ/L BUN (9-20) mg/dL Creatinine (0.66-1.25) mg/dL Estimated GFR ML/MIN Glucose (74-106) mg/dL POC Glucometer 367 H 399 H (74 to 106) mg/dL Hemoglobin A1c (4.5-6.0) % Calcium (8.4-10.2) mg/dL 05/26/22 05/26/22 05/26/22 Range/Units 04:22 04:22 06:47 WBC (4.0-10.5) x10^3/uL RBC (4.1-5.6) x10^6/uL Hgb (12.5-18.0) g/dL Hct (42-50) % MCV (78-100) fL MCH (26-32) pg MCHC (32-36) g/dL RDW (11.5-14.0) % Plt Count (150-450) x10^3/uL MPV (7.5-11.0) fL Sodium 133 L (137-145) mmol/L Potassium 5.4 H (3.5-5.1) mmol/L Chloride 101 (98-107) mmol/L Carbon Dioxide 21 L (22-30) mmol/L Anion Gap 17.4 H (5-15) MEQ/L BUN 42 H (9-20) mg/dL Creatinine 2.38 H (0.66-1.25) mg/dL Estimated GFR 32.9 ML/MIN Glucose 228 H (74-106) mg/dL POC Glucometer 245 H (74 to 106) mg/dL Hemoglobin A1c 5.68 (4.5-6.0) % Calcium 8.9 (8.4-10.2) mg/dL 05/26/22 Range/Units 12:02 WBC (4.0-10.5) x10^3/uL RBC (4.1-5.6) x10^6/uL Hgb (12.5-18.0) g/dL Hct (42-50) % MCV (78-100) fL MCH (26-32) pg MCHC (32-36) g/dL RDW (11.5-14.0) % Plt Count (150-450) x10^3/uL MPV (7.5-11.0) fL Sodium (137-145) mmol/L Potassium (3.5-5.1) mmol/L Chloride (98-107) mmol/L Carbon Dioxide (22-30) mmol/L Anion Gap (5-15) MEQ/L BUN (9-20) mg/dL Creatinine (0.66-1.25) mg/dL Estimated GFR ML/MIN Glucose (74-106) mg/dL POC Glucometer 256 H (74 to 106) mg/dL Hemoglobin A1c (4.5-6.0) % Calcium (8.4-10.2) mg/dL Radiology Exams: Radiology Procedures Category Date Time Status CHEST 1 VIEW (PORTABLE) Stat Exams 05/25/22 05:05 Completed
[2022-05-26 13:51] VITALS: BP 127/64; PULSE 84; O2SAT 92
== END 2022-05-26 15:00 | disposition home or self-care (01) ==
LOC: ED 04:26 → MED SURG 08:02
PROVIDERS: ADMIT Family Medicine; ATTEND Family Medicine
DX: J45.41 Moderate persistent asthma with (acute) exacerbation (principal); J18.9 Pneumonia, unspecified organism; E11.22 Type 2 diabetes mellitus with diabetic chronic kidney disease; I12.9 Hypertensive chronic kidney disease with stage 1 through stage 4 chronic kidney disease, or unspecified chronic kidney disease; N18.9 Chronic kidney disease, unspecified; E78.5 Hyperlipidemia, unspecified; E66.9 Obesity, unspecified; Z79.899 Other long term (current) drug therapy; Z20.828 Contact with and (suspected) exposure to other viral communicable diseases
CPT/HCPCS: 0241U; 36000; 36415; 71045; 80048; 80053; 82805; 82947; 83036; 83605; 83735; 84443; 84484; 85025; 85027; 85379; 93005; 93041; 94640; 94760; 94762; 96360; 96365; 96367; 96374; 96375; 99284; 93268; J0456; J0696; J1650; J1817; J1940; J2930; A9270-GY; G0378

== ENCOUNTER 2022-06-18 05:11 | Emergency (ER) | payer BC ==
--- NOTE | 2022-06-18 05:47 | ERPHSYRPT ---
- History of Present Illness Source: patient Exam Limitations: no limitations Patient Subjective Stated Complaint: shortness of breath Triage Nursing Assessment: Pt ambulated into ER. Pt alert and oriented x4, pleasant and cooperative. at bedside. Pt c/o shortness of breath, which is worse on exertion. Pt was diagnosed with pneumonia approx 3 weeks ago. Pt followed up with Dr. Hernandez last and he gave him a different prescription that was stronger. Pt woke up this morning wheezing. Pt has expiratory wheezes bilat to upper lobes ant and post. Lower lobes clear. Timing/Duration: week(s), worse Activities at Onset: rest Severity of Dyspnea-Max: moderate Severity of Dyspnea-Current: moderate Possible Cause: frequent episodes Modifying Factors: Improves With: albuterol inhaler. Worsens With: exertion Associated Symptoms: cough, wheezing, productive cough, No chest pain/ discomfort, No edema, No fever Hx Tetanus, Diphtheria Vaccination/Date Given: Yes Hx Influenza Vaccination/Date Given: No Hx Pneumococcal Vaccination/Date Given: No - History of Present Illness Time Seen by Provider: 06/18/22 05:46 Physician History: Patient here for increased sob and wheezing since this AM. Patient admitted for similar sxs at the end of April. Since that time he has been on Azithromycin and Levaquin due to no improvement. He has used his Albuterol HFA several times in the past 2 days and doesn't take a daily inhaler. He denies f/c/n/v, CP, abd pain or swelling. (HEIDY RM) Allergies/Adverse Reactions: No Known Drug Allergies Allergy (Verified 06/18/22 05:26) Home Medications: Metformin HCl [Glucophage] 1,000 mg PO BID 02/14/20 [History] Metoprolol Succinate 50 mg [Toprol Xl 50 MG] 1 tab PO DAILY 02/14/20 [History] Simvastatin 20Mg [Zocor 20Mg] 1 tab PO HS 02/14/20 [History] Albuterol Sulfate [Albuterol Sulfate Hfa] 8.5 gm IH Q4H PRN PRN 07/31/20 [History] Lisinopril 20 mg [Zestril 20 MG] 40 mg PO DAILY 07/31/20 [History] Sitagliptin Phosphate 50 MG [Januvia 50 MG] 100 mg PO DAILY 07/31/20 [History] glipiZIDE [Glipizide] 2 mg PO DAILY 07/31/20 [History] Dapagliflozin Propanediol [Farxiga] 10 mg PO DAILY 05/25/22 [History] Sodium Bicarbonate 650 mg PO DAILY 05/25/22 [History] levoFLOXacin [Levofloxacin] 500 mg PO HS 06/18/22 [History] Travel Risk - International Travel Have you traveled outside of the country in past 3 weeks: No - Coronavirus Screening Are you exhibiting any of the following symptoms?: Yes Symptoms: Shortness of Breath Close contact with a COVID-19 positive Pt in past 14-21 Days: No - Vaccine Status Have you recieved a Covid-19 vaccination: No - Review of Systems Constitutional: No Symptoms Ears, Nose, & Throat: No Symptoms Respiratory: Cough, Dyspnea, Dyspnea on Exertion (WILSON), Wheezing Cardiac: No Symptoms Abdominal/Gastrointestinal: No Symptoms Genitourinary Symptoms: No Symptoms Musculoskeletal: No Symptoms Skin: No Symptoms Neurological: No Symptoms Psychological: No Symptoms Endocrine: No Symptoms Hematologic/Lymphatic: No Symptoms Immunological/Allergic: No Symptoms All Other Systems: Reviewed and Negative - Past Medical History Pertinent Past Medical History: Yes Neurological History: No Pertinent History ENT History: No Pertinent History Cardiac History: High Cholesterol, Hypertension Respiratory History: Asthma, Pneumonia Endocrine Medical History: Diabetes Type II, Other Musculoskeletal History: Fractures GI Medical History: No Pertinent History History: Renal Disease Psycho-Social History: No Pertinent History Male Reproductive Disorders: No Pertinent History Other Medical History: Hx fx of right tibia with orif over 10 years ago. Hx of open wound lower abdomen requiring P.T. 12/2018-03/2021. Open wound/abscess due to ingrown hair. - Past Surgical History Past Surgical History: Yes Neuro Surgical History: No Pertinent History Cardiac: No Pertinent History Respiratory: No Pertinent History Gastrointestinal: Appendectomy Genitourinary: No Pertinent History Musculoskeletal: No Pertinent History Male Surgical History: No Pertinent History Other Surgical History: L arm surgery and R knee surgery. Two screws in R leg. - Social History Smoking Status: Never smoker Exposure to second hand smoke: No Drug Use: none Patient Lives Alone: No - Physical Exam General Appearance: no apparent distress, obese Eye Exam: eyes nml inspection Ears, Nose, Throat Exam: hearing grossly normal Neck Exam: normal inspection Respiratory Exam: airway intact, wheezing, No respiratory distress Cardiovascular/Chest Exam: normal heart sounds, regular rate/rhythm Abdominal/Gastrointestinal Exam: soft, normal bowel sounds, No tenderness Extremity Exam: No calf tenderness, No swelling Neurologic Exam: alert, oriented x 3, cooperative Skin Exam: normal color, warm, dry SpO2 Interpretation: normal SpO2: 95 O2 Delivery: Room Air - Nursing Vital Signs Nursing Vital Signs: Initial Vital Signs Temperature 96.8 F 06/18/22 05:12 Pulse Rate 68 06/18/22 05:12 Respiratory Rate 20 06/18/22 05:12 Blood Pressure 107/68 06/18/22 05:12 O2 Sat by Pulse Oximetry 95 06/18/22 05:12 Pain Scale Pain Intensity 0 - Course Nursing assessment & vital signs reviewed: Yes EKG Interpreted by Me: RATE (79), Sinus Rhythm, NORMAL AXIS, NORMAL INTERVALS, NORMAL ST-T Ordered Tests: Active Orders 24 hr Category Date Time Status EKG-ER Only STAT Care 06/18/22 05:49 Active IV Insertion STAT Care 06/18/22 05:49 Active CBC W DIFF Stat Lab 06/18/22 06:15 Completed CMP Stat Lab 06/18/22 06:15 Completed MAGNESIUM Stat Lab 06/18/22 06:15 Completed Respiratory Therapy Assessment DAILY RT 06/18/22 06:12 Active Medication Summary Generic Name Dose Route Start Last Admin Trade Name Freq PRN Reason Stop Dose Admin Albuterol/Ipratropium 3 ml 06/18/22 07:28 Ipratropium/Albuterol Sulfate 3 Ml Ampul.Neb 06/18/22 07:29 STAT ONE Discontinued Medications Generic Name Dose Route Start Last Admin Trade Name Freq PRN Reason Stop Dose Admin Albuterol/Ipratropium 3 ml 06/18/22 05:49 06/18/22 06:00 Ipratropium/Albuterol Sulfate 3 Ml Ampul.Neb IH 06/18/22 05:50 3 ml STAT ONE Administration Albuterol/Ipratropium Confirm 06/18/22 05:57 Ipratropium/Albuterol Sulfate 3 Ml Ampul.Neb Administered 06/18/22 05:58 Dose 3 ml IH .STK-MED ONE Methylprednisolone Sodium 0 mg 06/18/22 05:49 06/18/22 06:23 Succinate 125 mg/ Sterile IV 06/18/22 05:50 125 mg Water 2 ml STAT ONE Administration Sodium Chloride 1,000 mls @ 999 mls/hr 06/18/22 05:49 06/18/22 06:23 Sodium Chloride 0.9% 1000 Ml IV 06/18/22 06:49 999 mls/hr .Q1H1M STA Administration Sodium Chloride Confirm 06/18/22 06:20 Sodium Chloride 0.9% 1000 Ml Administered 06/18/22 06:21 Dose 1,000 mls @ ud .ROUTE .STK-MED ONE Methylprednisolone Sodium Succinate Confirm 06/18/22 06:19 Methylprednis Sod Succ 125 Mg/2 Ml Vial Administered 06/18/22 06:20 Dose 125 mg .ROUTE .STK-MED ONE Sterile Water Confirm 06/18/22 06:19 Water For Injection,Sterile 10 Ml Vial Administered 06/18/22 06:20 Dose 10 ml IJ .STK-MED ONE Lab/Rad Data: Laboratory Result Diagrams 06/18/22 06:15 06/18/22 06:15 Laboratory Results 06/18/22 06/18/22 Range/Units 06:15 06:15 WBC 5.5 (4.0-10.5) x10^3/uL RBC 5.55 (4.1-5.6) x10^6/uL Hgb 14.5 (12.5-18.0) g/dL Hct 47.3 (42-50) % MCV 85.2 (78-100) fL MCH 26.1 (26-32) pg MCHC 30.7 L (32-36) g/dL RDW 17.5 H (11.5-14.0) % Plt Count 199 (150-450) x10^3/uL MPV 10.2 (7.5-11.0) fL Gran % 61.6 (36.0-66.0) % Immature Gran % (Auto) 0.4 (0.00-0.4) % Nucleat RBC Rel Count 0.0 (0.00-0.1) % Eos # (Auto) 0.28 (0-0.5) x10^3/uL Immature Gran # (Auto) 0.02 (0.00-0.03) x10^3u/L Absolute Lymphs (auto) 1.26 (1.0-4.6) x10^3/uL Absolute Monos (auto) 0.51 (0.0-1.3) x10^3/uL Absolute Nucleated RBC 0.00 (0.00-0.01) x10^3u/L Lymphocytes % 22.8 L (24.0-44.0) % Monocytes % 9.2 (0.0-12.0) % Eosinophils % 5.1 H (0.00-5.0) % Basophils % 0.9 (0.0-0.4) % Absolute Granulocytes 3.41 (1.4-6.9) x10^3/uL Basophils # 0.05 (0-0.4) x10^3/uL Sodium 138 (137-145) mmol/L Potassium 5.2 H (3.5-5.1) mmol/L Chloride 103 (98-107) mmol/L Carbon Dioxide 27 (22-30) mmol/L Anion Gap 14.1 (5-15) MEQ/L BUN 33 H (9-20) mg/dL Creatinine 2.66 H (0.66-1.25) mg/dL Estimated GFR 28.9 ML/MIN Glucose 116 H (74-106) mg/dL Calcium 9.0 (8.4-10.2) mg/dL Magnesium 2.1 (1.6-2.3) mg/dL Total Bilirubin 0.60 (0.2-1.3) mg/dL AST 23 (17-59) U/L ALT 29 (0-50) U/L Alkaline Phosphatase 80 (38-126) U/L Serum Total Protein 7.1 (6.3-8.2) g/dL Albumin 4.0 (3.5-5.0) g/dL - Progress Progress: improved, re-examined Air Movement: good Blood Culture(s) Obtained: No Antibiotics given: No Counseled pt/family regarding: lab results, diagnosis, need for follow-up - Progress Progress Note: 06/18/22 06:53 Wheezing greatly improved after steroids and duoneb. His Cr is elevated at 2.66 today w/ a baseline around 2, GFR 29 and BUN of 30. He is getting a NS bolus of 1L. Patient still reporting SOB, but O2 remains greater than 95% on room air. I sent Incruse Ellipta and prednisone to pharmacy. I advised patient to continue Levaquin and f/u w/ Dr. Hernandez next week. Hand off to Dr. Lockhart at 0700. (HEIDY RM) 06/18/22 07:29 pt o2 sat stable. neb tx then discharge to home. (INDER LOCKHART) Medical Desision Making - Diagnostic Testing Diagnostic test were ordered, analyzed, and reviewed by me: Yes Radiological Interpretation: Interpreted by me - Risk of complications The pt has a mod risk of morbidity or mortality based on: Need for prescription drug management - Departure Critical Care Time: No - Departure Clinical Impression: Asthma exacerbation Condition: Stable Referrals: ALIA HERNANDEZ MD [Primary Care Provider] - Follow up/PCP as directed Instructions: Asthma, Adult (DC) Additional Instructions: Take your patient as prescribed. Follow-up with your primary care physician on 06/20/2022, to make arrangements for follow-up appointment in the next 3 to 5 days. Prescriptions: Albuterol/Ipratropium 3ml Neb* [DUONEB 0.5-3 MG/3 ml Neb] 3 ml NEB Q6H PRN #25 units PRN Reason: Shortness Of Breath/Wheezing Umeclidinium [place] [Incruse Ellipta] 62.5 mcg IH DAILY 30 Days #30 blist predniSONE [Prednisone] 50 mg PO DAILY 4 Days #4 tablet
[2022-06-18] MEDS ORDERED: solu-MEDROL 125 MG, Sterile H2O 10 ml 2 ML IV ONE ×2 (05:49)
[2022-06-18] MEDS ORDERED: DUONEB 0.5-3 MG/3 ml Neb IH ONE ×4 (05:49→07:38)
[2022-06-18] MEDS ORDERED: Sodium Chloride 0.9% 1000 ML 1,000 ML IV STA (05:49)
[2022-06-18 06:17] LABS: Absolute Neutrophil Ct (ANC) 3.41 x10^3/uL (1.4-6.9); BASOPHIL % 0.9 % (0.0-0.4); Basophil (Absolute #) 0.05 x10^3/uL (0-0.4); Eosinophil % 5.1 % (0.00-5.0); Eosinophil (Absolute #) 0.28 x10^3/uL (0-0.5); Hematocrit 47.3 % (42-50); Hemoglobin 14.5 g/dL (12.5-18.0); IMMATURE GRAN # 0.02 x10^3u/L (0.00-0.03); IMMATURE GRAN % 0.4 % (0.00-0.4); Lymphocyte (Absolute #) 1.26 x10^3/uL (1.0-4.6); Lymphocytes % 22.8 % (24.0-44.0); Mean Cell Volume 85.2 fL (78-100); Mean Corpuscular Hemoglobin 26.1 pg (26-32); Mean Corpuscular Hgb Concent. 30.7 g/dL (32-36); Mean Platelet Volume 10.2 fL (7.5-11.0); Monocyte (Absolute #) 0.51 x10^3/uL (0.0-1.3); Monocytes % 9.2 % (0.0-12.0); Neutrophil % 61.6 % (36.0-66.0); Platelet Count 199 x10^3/uL (150-450); Red Blood Count 5.55 x10^6/uL (4.1-5.6); Red Cell Distribution Width 17.5 % (11.5-14.0); White Blood Count 5.5 x10^3/uL (4.0-10.5)
[2022-06-18] MEDS ORDERED: solu-MEDROL ONE (06:19)
[2022-06-18] MEDS ORDERED: Sterile H2O 10 ml IJ ONE (06:19)
[2022-06-18] MEDS ORDERED: Sodium Chloride 0.9% 1000 ML 1,000 ML ONE (06:20)
[2022-06-18 06:35] LABS: ANION GAP 14.1 MEQ/L (5-15); BILIRUBIN,TOTAL 0.6 mg/dL (0.2-1.3); Creatinine 1 2.66 mg/dL (0.66-1.25); EST GLOMERULAR FILTRATION RATE 28.9 ML/MIN; MAGNESIUM 2.1 mg/dL (1.6-2.3); Potassium 5.2 mmol/L (3.5-5.1); Total Protein 7.1 g/dL (6.3-8.2)
[2022-06-18 08:02] VITALS: PULSE 71; O2SAT 96
[2022-06-18 08:16] VITALS: BP 105/84
== END 2022-06-18 08:16 | disposition home or self-care (01) ==
LOC: ED 05:11
DX: J45.901 Unspecified asthma with (acute) exacerbation (principal); E78.5 Hyperlipidemia, unspecified; I10 Essential (primary) hypertension; E11.9 Type 2 diabetes mellitus without complications; Z79.84 Long term (current) use of oral hypoglycemic drugs; Z79.52 Long term (current) use of systemic steroids; Z79.899 Other long term (current) drug therapy; Z28.310 Unvaccinated for COVID-19
CPT/HCPCS: 36000; 36415; 80053; 83735; 85025; 93005; 94640; 96374; 99284; J2930; A9270-GY